=== PATIENT | female | born 2000 | race Caucasian/White ===

== ENCOUNTER 2022-04-03 12:28 | Outpatient (CLI) | payer MEDICAID, SELFPAY ==
[2022-04-03 19:01] LABS: Chlamydia DNA Amplified* NOT DETECTED (No Detected); GC DNA Amplified* NOT DETECTED (No Detected)
== END 2022-04-03 12:29 | disposition home or self-care (01) ==
PROVIDERS: PCP Physician Assistant Medical; Visit Provider Obstetrics & Gynecology
DX: Z86.19 Personal history of other infectious and parasitic diseases (principal)
CPT/HCPCS: 87491; 87591

== ENCOUNTER 2023-02-14 08:41 | Emergency (ER) | payer MEDICAID, SELFPAY ==
[2023-02-14 08:46] VITALS: BP 136/77; PULSE 100; RESP 16; TEMP 36.7; O2SAT 97; BMI 26.2
--- NOTE | 2023-02-14 09:01 | ED.GENADULT ---
HPI - General Adult General Time Seen by Provider: 09:02 Date Seen: 02/14/23 Chief complaint: Animal Bite Stated complaint: dog bite on the nose Time Seen by Provider: 02/14/23 08:49 Source: patient and RN notes reviewed Mode of arrival: ambulatory Limitations: no limitations History of Present Illness HPI narrative: 22-year-old female who comes in today with upper respiratory symptoms, dog bite. She says she has had off and on cold symptoms for several months, most recently started a couple days ago with nasal congestion, cough, and ?feeling fuzzy?. She also notes a dog bite on her nose from 3 days ago. Known animal, unknown vaccination status. She called the clinic and they told her to come to the emergency department for evaluation for rabies and tetanus shots. Patient is not sure if she is . Related Data Home Medications Medication Instructions Recorded Confirmed albuterol sulfate 90 mcg/actuation 2 inhalation PRN 04/03/22 04/03/22 aerosol inhaler citalopram 20 mg tablet 20 mg PO QDAY 04/03/22 02/14/23 meloxicam 15 mg tablet 15 mg PO DAILY 02/14/23 02/14/23 norgestimate-ethinyl estradiol 1 tab PO DAILY 02/14/23 02/14/23 0.18 mg/0.215mg/0.25mg-35 mcg(28)tablet (Tri-Sprintec (28)) Allergies Allergy/AdvReac Type Severity Reaction Status Date / Time No Known Allergies Allergy Unverified 04/03/22 11:30 [facility] Medical History (Updated 02/14/23 @ 09:10 by Ramírez Villalobos MD) PTSD (post-traumatic stress disorder) ?F43.10 - Post-traumatic stress disorder, unspecified (ICD-10) Asthma ?J45.909 - Unspecified asthma, uncomplicated (ICD-10) Moderate episode of recurrent major depressive disorder (05/30/16) ?F33.1 - Major depressive disorder, recurrent, moderate (ICD-10) Generalized anxiety disorder (05/30/16) ?F41.1 - Generalized anxiety disorder (ICD-10) Family History (Updated 04/03/22 @ 15:40 by Tg Solis MD) Paternal Grandmother Breast cancer Social History (Updated 04/03/22 @ 15:40 by Tg Solis MD) Narrative: She currently works at [employer]. She has a high school graduate. She does not exercise regularly. She vapes daily. She doesn't use tobacco. She does not drink alcohol or use recreational drugs. Smoking Status: Never smoker Do you use any of these nicotine containing products: None Second hand tobacco smoke exposure: No How often do you have a drink containing alcohol: never How often do you have six or more drinks on one occasion: Never AUDIT-C Alcohol total score: 0 Non-prescribed substance use: denies use service: No Exam Narrative: Exam Narrative: General: Well-developed and well-nourished, no acute distress Head: Atraumatic and normocephalic Eyes: Pupils are equal reactive, extraocular motions intact, conjunctiva clear ENT: 1-2 mm superficial abrasion on the nasal bridge with no surrounding erythema or tenderness, external ears are normal, posterior pharynx without erythema or exudate. Nares congested. Neck: No midline cervical tenderness, full spontaneous range of motion the neck, trachea midline, no adenopathy Heart: Regular rate and rhythm no murmurs or thrills Lungs: Clear to auscultation bilaterally without wheezes or crackles Abdomen: Soft, nontender, nondistended with active bowel sounds Musculoskeletal: No tenderness, deformity, or edema Neurologic: Awake, alert, and oriented x3, no gross focal neurologic deficits, cranial nerves intact as tested Psych: Mood and affect are appropriate Skin: No rashes Const: Vital Signs, click to edit/add: Vital Signs - 24 hr 02/14/23 08:46 Temperature 98.1 F Pulse Rate [Left P ulse Oximeter] 100 Respiratory Rate 16 Blood Pressure [Le ft Upper Arm] 136/77 Pulse Oximetry 97 Oxygen Delivery Me thod Room Air Course Course Hospital Course: Patient seen examined, prior records reviewed. Patient with recent upper respiratory symptoms, she is mildly tachycardic but afebrile, lungs are clear no respiratory distress. Denies dysuria. No headache or neck stiffness. COVID and influenza tests are ordered. Also small superficial abrasion on the bridge of the nose with no surrounding erythema or tenderness to suggest infection or cellulitis. Discussed wound care. Also discussed rabies, dog that bit her is the pet of a friend, likely vaccinated and is observable.. Will defer rabies for now but will update that shot. Patient is unsure she is , last period was a month ago, patient is on control but admits that she has missed a couple of doses. test is ordered. Reevaluation(s) Time of Reevaluation #1: 10:11 Reevaluation #1: Present test independently interpreted by me is negative, COVID influenza pending. Patient is stable for discharge. Vital Signs Vital signs: Initial Vital Signs Temperature 98.1 F 02/14/23 08:46 Temperature Source Temporal Artery Scan 02/14/23 08:46 Pulse Rate 100 02/14/23 08:46 Pulse Rhythm Regular 02/14/23 08:46 Pulse Strength 3+ Normal 02/14/23 08:46 Respiratory Rate 16 02/14/23 08:46 Blood Pressure 136/77 02/14/23 08:46 Blood Pressure Mean 96 02/14/23 08:46 Blood Pressure Position Sitting 02/14/23 08:46 Pulse Oximetry 97 02/14/23 08:46 Oxygen Delivery Method Room Air 02/14/23 08:46 Vital Signs Temperature 98.1 F 02/14/23 08:46 Pulse Rate 100 02/14/23 08:46 Respiratory Rate 16 02/14/23 08:46 Blood Pressure 136/77 02/14/23 08:46 Pulse Oximetry 97 02/14/23 08:46 Oxygen Delivery Method Room Air 02/14/23 08:46 Temperature 98.1 F 02/14/23 08:46 Pulse Rate 100 02/14/23 08:46 Respiratory Rate 16 02/14/23 08:46 Blood Pressure 136/77 02/14/23 08:46 Pulse Oximetry 97 02/14/23 08:46 Oxygen Delivery Method Room Air 02/14/23 08:46 Medical Decision Making Lab Data Labs: Lab Results 02/14/23 Range/Units 09:00 Urine HCG, Qual Negative (Negative) Discharge Plan Discharge Clinical Impression: Acute upper respiratory infection, Dog bite Patient Disposition: Home, Self-Care Condition: Stable Instructions: Animal Bite (ED), Upper Respiratory Infection (DC) Additional Instructions: Wash your wound daily with soap and water, Band-Aid as desired Activity Level: No Restrictions Discharge Diet: Regular Prescriptions: No Action albuterol sulfate 90 mcg/actuation HFA aerosol inhaler 2 inhalation PRN citalopram 20 mg tablet 20 mg PO QDAY meloxicam 15 mg tablet 15 mg PO DAILY norgestimate-ethinyl estradiol [Tri-Sprintec (28)] 0.18/0.215/0.25 mg-35 mcg (28) tablet 1 tab PO DAILY Follow Up/Referrals: Amna Rojas, PAElio [Primary Care Provider] - Stand Alone Forms: [employer] Info Instructions
[2023-02-14] MEDS: TETANUS/DIPHTH/PERTUSSIS 0.5 ML SYRINGE IM (09:21)
[2023-02-14 09:54] LABS: Ur HCG Qualitative* Negative (Negative)
[2023-02-14 10:15] LABS: PCR FLU A Negative PCR FLU A (Negative); PCR FLU B Negative PCR FLU B (Negative); PCR RSV Negative PCR RSV (Negative)
[2023-02-14 10:19] LABS: SARS PCR* Negative SARS-CoV-2 (Negative)
== END 2023-02-14 10:21 | disposition home or self-care (01) ==
PROVIDERS: Emergency Provider Family Medicine; PCP Physician Assistant Medical
DX: J06.9 Acute upper respiratory infection, unspecified (principal); S01.25XA Open bite of nose, initial encounter; W54.0XXA Bitten by dog, initial encounter
CPT/HCPCS: 81025; 87631; 90471; 90715; 99283; 99284

== ENCOUNTER 2023-06-05 13:45 | Outpatient (RCR) | payer OTHER, SELFPAY | END 2023-10-03 23:59 | disposition home or self-care (01) | PROVIDERS: PCP Physician Assistant Medical; Visit Provider Student in an Organized Health Care Education/Training Program | DX: S46.811D Strain of other muscles, fascia and tendons at shoulder and upper arm level, right arm, subsequent encounter (principal); S29.012A Strain of muscle and tendon of back wall of thorax, initial encounter; S46.911A Strain of unspecified muscle, fascia and tendon at shoulder and upper arm level, right arm, initial encounter; Z51.89 Encounter for other specified aftercare | CPT/HCPCS: 97110; 97140; 97162; 97530 ==

== ENCOUNTER 2023-12-23 11:03 | Emergency (ER) | payer MEDICAID, SELFPAY ==
[2023-12-23 11:10] VITALS: BP 120/70; PULSE 90; RESP 16; TEMP 36.8; O2SAT 99; BMI 25.6
--- NOTE | 2023-12-23 11:22 | ED.ANIMALBIT ---
HPI - Animal Bite General Chief Complaint: Animal Bite Stated Complaint: cat bite Time Seen by Provider: 12/23/23 11:09 History of Present Illness HPI narrative: This 23-year-old female comes in with an injury to her left hand as she was bit by her cat a few hours prior to arrival. She has puncture encarnacion in the thenar muscle of her left hand and a scratch on the forearm. The patient's vaccination status is up-to-date as are her cat's vaccinations up-to-date. Related Data Home Medications Medication Instructions Recorded Confirmed albuterol sulfate 90 mcg/actuation 2 inhalation PRN 04/03/22 04/03/22 aerosol inhaler Previous Rx's Medication Instructions Recorded amoxicillin 875 mg-potassium 1 tab PO BID #14 tabs 12/23/23 clavulanate 125 mg tablet Allergies Allergy/AdvReac Type Severity Reaction Status Date / Time No Known Allergies Allergy Unverified 04/03/22 11:30 Review of Systems Status of ROS: Reports: 10 or more systems reviewed and unremarkable except as noted in History and below Narrative: Constitutional: No fevers, no weight gain or loss. Eyes: No discharge. No vision changes. HENT: No congestion, no sore throat, no ear pain. Cardiovascular: No chest pain, no palpitations. Respiratory: No shortness of breath, no wheezes, no cough. Gastrointestinal: No abdominal pain, no vomiting, no diarrhea. Genitourinary: No dysuria, no hematuria. Musculoskeletal: Normal range of motion. Skin: No rashes, no pruritis. Neurological: No dizziness, weakness, sensory change, speech change. Endo/Heme/Allergies: No bruising or bleeding. No polydipsia. Pysch: no suicidality, no anxiety, no insomnia. All other systems reviewed and are negative. [facility] Medical History (Updated 12/23/23 @ 11:25 by Mehrdad Smiley MD) PTSD (post-traumatic stress disorder) ?F43.10 - Post-traumatic stress disorder, unspecified (ICD-10) Asthma ?J45.909 - Unspecified asthma, uncomplicated (ICD-10) Moderate episode of recurrent major depressive disorder (05/30/16) ?F33.1 - Major depressive disorder, recurrent, moderate (ICD-10) Generalized anxiety disorder (05/30/16) ?F41.1 - Generalized anxiety disorder (ICD-10) Family History (Updated 04/03/22 @ 15:40 by Tg Solis MD) Paternal Grandmother Breast cancer Social History (Updated 04/03/22 @ 15:40 by Tg Solis MD) Narrative: She currently works at [email or web address]. She has a high school graduate. She does not exercise regularly. She vapes daily. She doesn't use tobacco. She does not drink alcohol or use recreational drugs. Smoking Status: Never smoker Do you use any of these nicotine containing products: None Second hand tobacco smoke exposure: No How often do you have a drink containing alcohol: never How often do you have six or more drinks on one occasion: Never AUDIT-C Alcohol total score: 0 Non-prescribed substance use: denies use service: No Exam Narrative: Exam Narrative: Constitutional: Well-developed, well-nourished, no acute distress. HEENT: Normocephalic, atraumatic. Neck: Normal range of motion. Nontender. Supple. Heart: Intact distal pulses. Lungs: No chest discomfort. No wheezes, rhonchi, or rales. Abdomen: Nontender. Back: Normal range of motion. Extremities: Normal range of motion. Three puncture wounds in the thenar muscle of her left hand. A superficial scratch also on the forearm. Skin: Intact. No rash. Warm. No erythema or pallor. Neurologic: No altered sensation. No weakness. Alert and oriented. Psychiatric: No suicidality. No anxiety or depression. No insomnia. Nursing notes and vitals signs are reviewed. Const: Vital Signs, click to edit/add: Vital Signs - 24 hr 12/23/23 11:10 Temperature 98.3 F Pulse Rate [Pulse Oximeter] 90 Respiratory Rate 16 Blood Pressure [Ri ght Upper Arm] 120/70 Pulse Oximetry 99 Oxygen Delivery Me thod Room Air Course Vital Signs Vital signs: Initial Vital Signs Temperature 98.3 F 12/23/23 11:10 Temperature Source Temporal Artery Scan 12/23/23 11:10 Pulse Rate 90 12/23/23 11:10 Respiratory Rate 16 12/23/23 11:10 Blood Pressure 120/70 12/23/23 11:10 Blood Pressure Mean 86 12/23/23 11:10 Blood Pressure Position Supine 12/23/23 11:10 Pulse Oximetry 99 12/23/23 11:10 Oxygen Delivery Method Room Air 12/23/23 11:10 Vital Signs Temperature 98.3 F 12/23/23 11:10 Pulse Rate 90 12/23/23 11:10 Respiratory Rate 16 12/23/23 11:10 Blood Pressure 120/70 12/23/23 11:10 Pulse Oximetry 99 12/23/23 11:10 Oxygen Delivery Method Room Air 12/23/23 11:10 Temperature 98.3 F 12/23/23 11:10 Pulse Rate 90 12/23/23 11:10 Respiratory Rate 16 12/23/23 11:10 Blood Pressure 120/70 12/23/23 11:10 Pulse Oximetry 99 12/23/23 11:10 Oxygen Delivery Method Room Air 12/23/23 11:10 MDM - Animal Bite MDM Narrative Medical decision making narrative: This patient has a cat bite to her left hand. Given the high risk of infection the patient did receive a prescription for Augmentin. She also received a return to work note. I advised her to use glmo-pmp-[id number] medicines as needed and directed. The CT and the patient's vaccination status is up-to-date. The patient states that the CT appears well and is almost always inside and not roaming outside. Discharge Plan Discharge Clinical Impression: Cat bite Patient Disposition: Home, Self-Care Condition: Stable Additional Instructions: Take medication as prescribed. Use gaoh-jfk-[id number] medicines also as needed and directed. Follow up with MD or return if worsening. Prescriptions: New amoxicillin-pot clavulanate 875-125 mg tablet 1 tab PO BID Qty: 14 0RF No Action albuterol sulfate 90 mcg/actuation HFA aerosol inhaler 2 inhalation PRN Follow Up/Referrals: Amna Rojas PA-C [Primary Care Provider] - Stand Alone Forms: [employer] Info Instructions
--- OUTSIDE RECORDS SUMMARY | 2023-12-23 11:30 | XMS_ITS | Clinical Summary ---
Author Name Unknown Organization [facility] Address [place], [place] [address] Care Team Providers Care Inverform Machine Operator Name Role Phone Amna Rojas Primary Care Provider Allergies No known active allergies Medications Medication Sig Dispensed Refills Start Date End Date Status citalopram (CELEXA) 20 mg tabletIndications: Depression, major, single episode, moderate (HC) Take 1 Tablet (20 mg) by mouth every morning. 90 Tablet 3 01/17/2023 Active norgestimate-ethin yl estradioL (Tri-Sprintec) 0.18/0.215/0.25 mg-35 mcg (28) tabletIndications: Acne, unspecified acne type Take 1 Tablet by mouth once daily. 84 Tablet 3 01/17/2023 Active meloxicam 15 mg tabletIndications: Shoulder strain, right, initial encounter Take 1 Tablet (15 mg) by mouth once daily. 30 Tablet 02/02/2023 Active ibuprofen (ADVIL; MOTRIN) 200 mg tabletIndications: Periscapular pain Take 2 Tablets (400 mg) by mouth every 6 hours if needed for Pain. 90 Tablet 05/01/2023 Active acetaminophen (TYLENOL EXTRA STRGTH) 500 mg tabletIndications: Periscapular pain Take 1 Tablet (500 mg) by mouth every 6 hours. Max acetaminophen dose: 4000mg in 24 hrs. 60 Tablet 05/01/2023 Active albuterol HFA (PRO-AIR; VENTOLIN; PROVENTIL) 90 mcg/actuation inhalerIndications :Cough, unspecified type Inhale 1-2 Puffs by mouth every 4 hours if needed for Shortness Of Breath. 1 Each 07/23/2023 Active Active Problems Problem Noted Date Diagnosed Date Pap smear for cervical cancer screening 08/06/20 23 Overview: 07/2023 NIL Plan: Pap/HPV due 07/2026 Trapezius strain, right, initial encounter 02/09 Mild intermittent asthma without complication MDD (major depressive disord er), recurrent episode, moderate 05/30/2016 AYAN (generalized anxiety disorder) 05/30/2016 PTSD (post-traumatic stress disorder) Provisiona l 05/30/2016 Immunizations Name Administration Dates Next Due COVID-19 vaccine (Moderna 100mcg/0.5mL) PF, MDV 06/05/2021,05/08/2021 DTaP 10/30/2005, 3,2001,09/04,2001 HIB-HepB (Comvax) 09/16/2002,2001,07/30/20 01 Hepatitis A (Peds) 01/14/2010,01/04/2007 007 Human Papilloma Virus Vaccine 02/06/2014, 014,08/07/2013 02/05/2014 Inactivated Polio Vaccine 10/30/2005,,2001,07/05 Influenza, IIV3 (Age >=3 years) 08/07/2013 MMR 10/30/2005,05/27/2002 Meningococcal Vaccine (Menveo) 06/10/2018,2012 Pneumococcal conj 7-Valent ( Prevnar 7) 09/16/2002,05/27/2002,02/14/2002,11/02 Tdap 08/07/2013 Varicella Vaccine 01/04/2007,05/27/2002 Family History Medical History Relation Name Comments Psychiatric illness Mother depressi on Relation Name Status Comments Mother Alive Social History Tobacco Use Types Packs/Day Years Used Date Smoking Tobacco: Former Cigarettes Smokeless Tobacco: Never Tobacco Cessation:Counseling Given: Not Answered Alcohol Use Standard Drinks/Week Comments Yes 0 (1 standard drink = 0.6 oz pur e alcohol) PHQ-2 Answer Date Recorded PHQ-2 TOTAL SCORE 2 07/06/2021 Social Connections Answer Date Recorded Frequency of Communication with Friends and Fami ly 0 06/20/2023 Financial Resource Strain Answer Date R ecorded Difficulty of Paying Living Expenses 2 06/20/2023 Difficulty of Paying Living Expenses 1 06/20/2023 Food Insecurity Answer Date Recorded Worried About Running Out of Food in the Last Ye ar 2 06/20/2023 Transportation Needs Answer Date Record ed Lack of Transportation (Medical) 2 06/20/2023 Housing Stability Answer Date Recorded Unable to Pay for Housing in the Last Year 1 06/20/2023 Sex and Gender Information Value Date Recorded Sex Assigned at Not on file Gender Identity Not on file Sexual Orientation Not on file Obstetrics History Last Filed Vital Signs Vital Sign Reading Time Taken Comments Blood Pressure 104/70 07/23/2023 1:30 PM REMEDY DEVELOPER Pulse 96 07/23/2023 1:30 PM REMEDY DEVELOPER Temperature 36.7 ??C (98 ??F) 02/09/2023 4:21 PM CDT Respiratory Rate 18 02/09/2023 4:21 PM CDT Oxygen Saturation 98% 05/01/2023 12:57 PM CDT Inhaled Oxygen Concentration - - Weight 65.3 kg (144 lb) 07/23/2023 1:30 PM REMEDY DEVELOPER Height 161.3 cm (5' 3.5) 02/09/2023 4:21 PM CDT Body Mass Index 25.11 02/09/2023 4:21 PM CDT Plan of Treatment Upcoming Encounters Date Type Department Care Team (Late st Contact Info) Description 01/21/2024 10:50 AM CDT Office Visit [facility] [address] [place] [address] Amna Rojas PA [address] [place] [address] Health Maintenance Due Date Last Done Comments Depression screening for age 12+ 07/06/2022 07/06/2021, 01/05/2021, 01/05/2021, Additional history exists COVID-19 vaccine series ( season) 2023 06/05/2021, 05/08/2021 Tetanus booster 08/07/2023 08/07/2013 BMI (ht and wt on same day) for age 18+ 02/03/2024 02/02/2023, 01/17/2023, 03/13/2022, Additional history exists Influenza for age 9-49 05/04/2024 08/07/2013 Chlamydia for age 16-24 07/23/2024 07/23/20 23, 06/20/2023, 01/17/2023, Additional history exists Pap test for age 21-65 07/23/2026 07/23/2023 Pneumococcal series for age 6-64 Aged Out 09/16/2002, 05/27/2002, 02/14/2002, Additional history exists No longer eligible based on patient's age to complete this topic Tdap Completed 08/07/2013 HPV series for age 9-26 Completed 02/07/20 14, 10/09/2013, 08/07/2013 HIV for age 15-65 Completed 06/20/2023, , 09/16/2021 Hepatitis C screening for age 18-79 Completed 06/20/2023, 09/16/2021 Procedures Procedure Name Priority Date/Time Associated Diagnosis Comments GC CHLAMYDIA TRACH PROBE Routine 07/23/2023 1:52 PM REMEDY DEVELOPER Screen for STD (sexually transmitted disease) FURNITURE REFINISHER THIN PREP PAP SCREEN IMAGED Routine 07/23/2023 1:52 PM REMEDY DEVELOPER Screening for cervical cancer ANTI HIV 1/2 Routine 06/20/2023 10:05 AM CDT Screen for STD (sexually transmitted disease) ANTI HCV Routine 06/20/2023 10:05 AM CDT Screen for STD (sexually transmitted disease) from Last 3 Months or Most Recently Relevant to Health Maintenance Results * FURNITURE REFINISHER THIN PREP PAP SCREEN IMAGED (07/23/2023 1:52 PM REMEDY DEVELOPER) Case Report Gynecologic Cytology Report ? Case: [id number] ? Authorizing Provider: ??Amna Rojas PA Collected: ? 07/23/2023 1352 ? Ordering Location: ? [facility] ?? Received: ?07/23/2023 1431 ? Clinic ? First Screen: ?Ladan, Sabrina L ? Pathologist: ? Son Barrera Jr., ? MD ? Specimen: ?FURNITURE REFINISHER ThinPrep Vial Screening, Cervical ? 08/06/2023 3:12 PM REMEDY DEVELOPER [facility] INTERPRETATION/ RESULT NEGATIVE FOR INTRAEPITHELIAL LESION OR MALIGNANCY (NIL) (none) 08/06/2023 3:12 PM REMEDY DEVELOPER [facility] R NON-NEOPLASTIC FINDING(S) Reactive cellular changes associated with inflammation/repa ir 08/06/2023 3:12 PM REMEDY DEVELOPER [facility] SPECIMEN ADEQUACY Satisfactory for evaluation Endocervical component present 08/06/2023 3:12 PM REMEDY DEVELOPER [facility] Date of LMP 06-27-23 08/06/2023 3:12 PM REMEDY DEVELOPER [facility] Last Pap Date none 08/06/2023 3:12 PM REMEDY DEVELOPER [facility] Last Pap Result First Pap/Unknown 3:12 PM REMEDY DEVELOPER [facility] Abnormal Pap or Palo Bx in last 5 years No 08/06/2023 3:12 PM REMEDY DEVELOPER [facility] Menstrual Status Regular Periods 08/06/2023 3:12 PM REMEDY DEVELOPER [facility] Palo Bx Done Today No 08/06/2023 3:12 PM REMEDY DEVELOPER [facility] Additional Information None given 08/06/2023 3:12 PM REMEDY DEVELOPER [facility] Comment: Cytology is screened at [facility] - [address], [place] [address] and [facility] - [address], [place] [address] and [facility] - [address] [place] [address] Interpreted at [facility] - [address], [place] [address] Automated Review Successful 08/06/2023 3:12 PM REMEDY DEVELOPER [facility] Comment:Specimen processed s uccessfully by automated toll collector supervisor device, ThinPrep Imaging System, [employer] Note The pap test is a screening technique, not a diagnostic procedure. It is used primarily to screen for squamous cancers and precursor lesions. Published studies have shown that it is subject to both false negative and false positive results. The pap test should not be used as the sole means to diagnose or exclude pre-malignant and malignant lesions. 08/06/2023 3:12 PM REMEDY DEVELOPER [facility] ENTRAL LABORATORY Other (Cervical) Non-Blood / Unknown 07/23/2023 1:52 PM REMEDY DEVELOPER 07/23/2023 2:31 PM REMEDY DEVELOPER Amna JAMES PATHOLOGY/CYTOL OGY Performing Organization Address City/[facility] [address]/ZIP Co de Phone Number [facility] [address] [place] [address], [place] * GC CHLAMYDIA TRACH PROBE (07/23/2023 1:52 PM REMEDY DEVELOPER) CHLAMYDIA PROBE Negative 1:25 PM REMEDY DEVELOPER [facility] TRAL LABORATORY N GONORRHOEAE PROBE Negative 07/24/2023 1:25 PM REMEDY DEVELOPER [facility] Other VAGINAL SWAB / Unknown Non-Blood / Unknown 07/23/2023 1:52 PM REMEDY DEVELOPER 07/23/2023 2:31 PM REMEDY DEVELOPER Amna JAMES MICROBIOLOGY Performing Organization Address [facility] [address]/[facility] Co de Phone Number [facility] [address] [place] [address], [place] * ANTI HCV (06/20/2023 10:05 AM CDT) HEPATITIS C ANTIBODY Non-Reacti ve Non-React lupe 06/20/2023 4:50 PM CDT [facility] TR[facility] LAB[facility] Comment:Please note, per www .CDC.gov: If a patient is known to be at high risk of HCV infection, or is symptomatic, and the physician's suspicion of HCV infection is high, HCV RNA testing is often employed and is of diagnostic value, even after an initial negative anti-HCV test result. Blood BLOOD SPECIMEN / Unknown Venipuncture / Unknown 06/20/2023 10:05 AM CDT 06/20/2023 10:06 AM CDT Amna JAMES [facility]END [facility]S [facility] [address] [address], * ANTI HIV 1/2 (06/20/2023 10:05 AM CDT) HIV-1/HIV-2 SCREEN Non-Reacti ve Non-Reacti ve 06/20/2023 4:42 PM CDT [facility] Comment:HIV-1 p24 and HIV-1/ HIV-2 Ab Not Detected. Blood BLOOD SPECIMEN / Unknown Venipuncture / Unknown 06/20/2023 10:05 AM CDT 06/20/2023 10:06 AM CDT Amna JAMES SEND OUTS Performing Organization Address City/[facility] [address]/ZIP Co de Phone Number [facility] [address] [place] [address], from Last 3 Months or Most Recently Relevant to Health Maintenance Care Teams Inverform Machine Operator Relationship Specialty Start Date End Date Amna Rojas PA [address] [place] [address] PCP - General Physician Health Data Analyst 05/19/20
== END 2023-12-23 11:39 | disposition home or self-care (01) ==
LOC: ED 11:28
PROVIDERS: Emergency Provider Emergency Medicine Emergency Medical Services; PCP Physician Assistant Medical
DX: S61.432A Puncture wound without foreign body of left hand, initial encounter (principal); W55.01XA Bitten by cat, initial encounter
CPT/HCPCS: 99283; 99284

== ENCOUNTER 2023-12-25 07:45 | Emergency (ER) | payer MEDICAID, SELFPAY ==
[2023-12-25 07:52] VITALS: BP 107/64; PULSE 91; RESP 18; TEMP 36.6; O2SAT 98; BMI 25.6
--- NOTE | 2023-12-25 08:12 | ED_ITS ---
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 had a cat bite on Sunday to the left hand. has redness, swelling and pain that is not improving. is on augmentin . does need a not for work 23-year-old young woman presenting to the emergency department for re-evaluation following a cat bite 2 days ago. Initiated on Augmentin. She has had 3 doses of antibiotic at this point. 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 Has not had a fever. Swelling is markedly less in her left hand however pain remains particular with any manipulation of the thumb area. Was bit on the base of the left thumb. There is no light duty option at work. Related Data Home Medications Medication Instructions Recorded Confirmed albuterol sulfate 90 mcg/actuation 2 inhalation PRN 04/03/22 04/03/22 aerosol inhaler Previous Rx's Medication Instructions Recorded amoxicillin 875 mg-potassium 1 tab PO BID #14 tabs 12/23/23 clavulanate 125 mg tablet Allergies Allergy/AdvReac Type Severity Reaction Status Date / Time No Known Allergies Allergy Unverified 04/03/22 11:30 Review of Systems Status of ROS: Reports: 6 or more systems reviewed and unremarkable except as noted in History and below [facility] Medical History PTSD (post-traumatic stress disorder) ?F43.10 - Post-traumatic stress disorder, unspecified (ICD-10) Asthma ?J45.909 - Unspecified asthma, uncomplicated (ICD-10) Moderate episode of recurrent major depressive disorder (05/30/16) ?F33.1 - Major depressive disorder, recurrent, moderate (ICD-10) Generalized anxiety disorder (05/30/16) ?F41.1 - Generalized anxiety disorder (ICD-10) Family History Paternal Grandmother Breast cancer Social History Narrative: She currently works at [employer]. She has a high school graduate. She does not exercise regularly. She vapes daily. She doesn't use tobacco. She does not drink alcohol or use recreational drugs. Smoking Status: Never smoker Do you use any of these nicotine containing products: None Second hand tobacco smoke exposure: No How often do you have a drink containing alcohol: never How often do you have six or more drinks on one occasion: Never AUDIT-C Alcohol total score: 0 Non-prescribed substance use: denies use service: No Exam Narrative: Exam Narrative: Pleasant. NAD. Skin is warm and dry. There is mild swelling and mild erythema at the thenar eminence and dorsum of the 1st MCP on the left hand. These were/are bandaged. Does have good strength in the left hand but pain notable with manipulation of the thumb. Const: Vital Signs, click to edit/add: Vital Signs - 24 hr 12/25/23 07:52 Temperature 98 F Pulse Rate [Pulse Oximeter] 91 Respiratory Rate 18 Blood Pressure [Le ft Upper Arm] 107/64 Pulse Oximetry 98 Oxygen Delivery Me thod Room Air Documenting provider has reviewed patient's vital signs: yes Course Vital Signs Vital signs: Initial Vital Signs Temperature 98 F 12/25/23 07:52 Temperature Source Temporal Artery Scan 12/25/23 07:52 Pulse Rate 91 12/25/23 07:52 Pulse Rhythm Regular 12/25/23 07:52 Respiratory Rate 18 12/25/23 07:52 Blood Pressure 107/64 12/25/23 07:52 Blood Pressure Mean 78 12/25/23 07:52 Blood Pressure Position Supine 12/25/23 07:52 Pulse Oximetry 98 12/25/23 07:52 Oxygen Delivery Method Room Air 12/25/23 07:52 Vital Signs Temperature 98 F 12/25/23 07:52 Pulse Rate 91 12/25/23 07:52 Respiratory Rate 18 12/25/23 07:52 Blood Pressure 107/64 12/25/23 07:52 Pulse Oximetry 98 12/25/23 07:52 Oxygen Delivery Method Room Air 12/25/23 07:52 Temperature 98 F 12/25/23 07:52 Pulse Rate 91 12/25/23 07:52 Respiratory Rate 18 12/25/23 07:52 Blood Pressure 107/64 12/25/23 07:52 Pulse Oximetry 98 12/25/23 07:52 Oxygen Delivery Method Room Air 12/25/23 07:52 Medical Decision Making MDM Narrative Medical decision making narrative: I would assess to have mild cellulitic changes. Overall sounds to be improved. I would continue course of antibiotics at this point and add b.i.d. soaking. Have not seen antibiotic failure at this point and furthermore is still prophylaxis. Would rest left hand a little longer. Work note and see patient discharge plan further discussion Medical Records Medical records reviewed: Yes I reviewed the patient's medical records Discharge Plan Discharge Clinical Impression: Hand pain, left, Cat bite Patient Disposition: Home w/ Parent or Adult Condition: Stable Additional Instructions: Please soak your hand in warm Epsom salt water or warm soapy water a couple of times daily over the next few days. Would continue with antibiotic ointment o nadine this time as well with dressing changes. Rest your hand yet today and tomorrow. Return for spreading erythema after tomorrow, purulent drainage, marked increase in pain or swelling. Prescriptions: No Action albuterol sulfate 90 mcg/actuation HFA aerosol inhaler 2 inhalation PRN amoxicillin-pot clavulanate 875-125 mg tablet 1 tab PO BID Qty: 14 0RF Follow Up/Referrals: Amna Rojas PA-C [Primary Care Provider] - Stand Alone Forms: Hubblr[employer] Info Instructions
--- OUTSIDE RECORDS SUMMARY | 2023-12-25 08:37 | XMS_ITS | Clinical Summary ---
Author Name Unknown Organization [facility] Address [place], [place] [address] Care Team Providers Care Banquet Server On Call Name Role Phone Amna Rojas Primary Care [...] Comments Blood Pressure 104/70 07/23/2023 1:30 PM COMMERCIAL LOAN ANALYST Pulse 96 07/23/2023 1:30 PM COMMERCIAL LOAN ANALYST Temperature 36.7 ??C (98 ??F) 02/09/2023 4:21 PM CDT Respiratory Rate 18 02/09/2023 4:21 PM CDT Oxygen Saturation 98% 05/01/2023 12:57 PM CDT Inhaled Oxygen Concentration - - Weight 65.3 kg (144 lb) 07/23/2023 1:30 PM COMMERCIAL LOAN ANALYST Height 161.3 cm (5' 3.5) 02/09/2023 4:21 PM CDT Body Mass Index 25.11 02/09/2023 4:21 PM CDT Plan of Treatment Upcoming Encounters Date Type Department Care Team (Late st Contact Info) Description 01/21/2024 10:50 AM CDT Office Visit [facility] [address] [place] [address] Amna Rojas PA [address] [place] [address] Health Maintenance Due Date Last Done Comments [...] CHLAMYDIA TRACH PROBE Routine 07/23/2023 1:52 PM COMMERCIAL LOAN ANALYST Screen for STD (sexually transmitted disease) EMBALMER/FUNERAL DIRECTOR THIN PREP PAP SCREEN IMAGED Routine 07/23/2023 1:52 PM COMMERCIAL LOAN ANALYST Screening for cervical cancer ANTI HIV 1/2 Routine 06/20/2023 10:05 AM CDT Screen for STD (sexually transmitted disease) ANTI HCV Routine 06/20/2023 10:05 AM CDT Screen for STD (sexually transmitted disease) from Last 3 Months or Most Recently Relevant to Health Maintenance Results * EMBALMER/FUNERAL DIRECTOR THIN PREP PAP SCREEN IMAGED (07/23/2023 1:52 PM COMMERCIAL LOAN ANALYST) Case Report Gynecologic Cytology Report ? Case: [id number] ? Authorizing Provider: ??Amna Rojas PA Collected: ? 07/23/2023 1352 ? Ordering Location: ? [facility] ?? Received: ?07/23/2023 1431 ? Clinic ? First Screen: ?Ladan, Sabrina L ? Pathologist: ? Son Barrera Jr., ? MD ? Specimen: ?EMBALMER/FUNERAL DIRECTOR ThinPrep Vial Screening, Cervical ? 08/06/2023 3:12 PM COMMERCIAL LOAN ANALYST [facility] INTERPRETATION/ RESULT NEGATIVE FOR INTRAEPITHELIAL LESION OR MALIGNANCY (NIL) (none) 08/06/2023 3:12 PM COMMERCIAL LOAN ANALYST [facility] LAB[facility] R NON-NEOPLASTIC FINDING(S) Reactive cellular changes associated with inflammation/repa ir 08/06/2023 3:12 PM COMMERCIAL LOAN ANALYST [facility] SPECIMEN ADEQUACY Satisfactory for evaluation Endocervical component present 08/06/2023 3:12 PM COMMERCIAL LOAN ANALYST [facility] Date of LMP 06-27-23 08/06/2023 3:12 PM COMMERCIAL LOAN ANALYST [facility] Last Pap Date none 08/06/2023 3:12 PM COMMERCIAL LOAN ANALYST [facility] Last Pap Result First Pap/Unknown 3:12 PM COMMERCIAL LOAN ANALYST [facility] Abnormal Pap or [place] Bx in last 5 years No 08/06/2023 3:12 PM COMMERCIAL LOAN ANALYST [facility] Menstrual Status Regular Periods 08/06/2023 3:12 PM COMMERCIAL LOAN ANALYST [facility] [place] Bx Done Today No 08/06/2023 3:12 PM COMMERCIAL LOAN ANALYST [facility] Additional Information None given 08/06/2023 3:12 PM COMMERCIAL LOAN ANALYST [facility] Comment: Cytology is screened at [facility] - [address], [place] [address] and [facility] - [address], [place] [address] and [facility] - [address] [place] [address] Interpreted at [facility] - [address], [place] [address] Automated Review Successful 08/06/2023 3:12 PM COMMERCIAL LOAN ANALYST [facility] Comment:Specimen processed s uccessfully by automated newspaper or periodical editor device, ThinPrep Imaging System, [employer] Note The pap test is a screening technique, not a diagnostic procedure. It is used primarily to screen for squamous cancers and precursor lesions. Published studies have shown that it is subject to both false negative and false positive results. The pap test should not be used as the sole means to diagnose or exclude pre-malignant and malignant lesions. 08/06/2023 3:12 PM COMMERCIAL LOAN ANALYST [facility]- ENTRAL LABORATORY Other (Cervical) Non-Blood / Unknown 07/23/2023 1:52 PM COMMERCIAL LOAN ANALYST 07/23/2023 2:31 PM COMMERCIAL LOAN ANALYST Amna JAMES PATHOLOGY/CYTOL OGY Performing Organization Address City/[facility]/ZIP Co de Phone Number [facility] [address] [place] [address], [place] * GC CHLAMYDIA TRACH PROBE (07/23/2023 1:52 PM COMMERCIAL LOAN ANALYST) CHLAMYDIA PROBE Negative 1:25 PM COMMERCIAL LOAN ANALYST [facility] TRAL LAB[facility]ATORY N GONORRHOEAE PROBE Negative 07/24/2023 1:25 PM COMMERCIAL LOAN ANALYST [facility] Other VAGINAL SWAB / Unknown Non-Blood / Unknown 07/23/2023 1:52 PM COMMERCIAL LOAN ANALYST 07/23/2023 2:31 PM COMMERCIAL LOAN ANALYST Amna JAEMS MICROBIOLOGY Performing Organization Address [facility] Co de Phone Number [facility] [address] [place] [address], [place] * ANTI HCV (06/20/2023 10:05 AM CDT) HEPATITIS C ANTIBODY Non-Reacti ve Non-React lupe 06/20/2023 4:50 PM CDT [facility] Comment:Please note, per www [...] 10:06 AM CDT Amna JAMES SEND OUTS [facility] [address] [address], * ANTI HIV 1/2 (06/20/2023 10:05 AM CDT) HIV-1/HIV-2 SCREEN Non-Reacti ve Non-Reacti ve 06/20/2023 4:42 PM CDT [facility] Comment:HIV-1 p24 and HIV-1/ HIV-2 Ab Not Detected. Blood BLOOD SPECIMEN / Unknown Venipuncture / Unknown 06/20/2023 10:05 AM CDT 06/20/2023 10:06 AM CDT Amna JAMES SEND OUTS Performing Organization Address City/[facility]/ZIP Co de Phone Number [facility] [address] [place] [address], from Last 3 Months or Most Recently Relevant to Health Maintenance Care Teams Banquet Server On Call Relationship Specialty Start Date End Date Amna Rojas PA [address] [place] [address] PCP - General Physician Botany Professor 05/19/20
== END 2023-12-25 08:45 | disposition home or self-care (01) ==
PROVIDERS: Emergency Provider Family Medicine; PCP Physician Assistant Medical
DX: S60.572A Other superficial bite of hand of left hand, initial encounter (principal); W55.01XA Bitten by cat, initial encounter
CPT/HCPCS: 99283; 99284

== ENCOUNTER 2024-10-20 19:18 | Emergency (ER) | payer MEDICAID, SELFPAY ==
--- OUTSIDE RECORDS SUMMARY | 2024-10-20 19:20 | XMS_ITS | Clinical Summary ---
Author Organization [facility] Address [place], [place] [address] Care Team Providers Care Palliative Care Nurse Name Role Phone Amna Rojas Primary Care Provider Allergies No known active allergies Medications albuterol HFA (PRO-AIR; VENTOLIN; PROVENTIL) 90 mcg/actuation inhalerIndications :Cough, unspecified type Inhale 1-2 Puffs by mouth every 4 hours if needed for Shortness Of Breath. 1 Each 4 Active ondansetron (ZOFRAN ODT) 4 mg disintegrating tabletIndications: Nausea and vomiting, unspecified vomiting type Place 1 Tablet (4 mg) on the tongue every 8 hours if needed for Nausea/Vomiti ng. 30 Tablet 4 Active clotrimazole (LOTRIMIN) 1 % creamIndications:V ulvar candidiasis Apply topically to affected area(s) two times daily. Use for 5-7 days. 45 g 4 Active Active Problems Problem Noted Date Diagnosed Date Pap smear for cervical cancer screening 08/06/20 23 Overview (08/06/2023): 07/2023 NIL Plan: Pap/HPV due 07/2026 Trapezius strain, right, initial encounter 02/09 Mild intermittent asthma without complication MDD (major depressive disord er), recurrent episode, moderate 05/30/2016 AYAN (generalized anxiety disorder) 05/30/2016 PTSD (post-traumatic stress disorder) Provisiona l 05/30/2016 Encounters Date Type Department Care Team Description 09/05/2024 2:40 PM COMMERCIAL REAL ESTATE LENDER Office Visit [facility] [address] [place] [address] Dottie Lizarraga MD Establish Care; Cyst (Noticed about 1-2 years ago. Painful at times, puss discharge. ) 09/05/2024 Travel from Last 3 Months Immunizations Name Administration Dates Next Due COVID-19 vaccine (Moderna 100mcg/0.5mL) PF MDV 06/05/2021,05/08/2021 DTaP 10/30/2005, 3,2001,09/04,2001 HIB-HepB (Comvax) 09/16/2002,2001,07/30/20 01 Hepatitis A (Peds) 01/14/2010,01/04/2007 007 Human Papilloma Virus Vaccine 02/06/2014, 014,08/07/2013 02/05/2014 Inactivated Polio Vaccine 10/30/2005,,2001,07/05 Influenza, IIV3 (Age >=3 years) 08/07/2013 MENINGOCOCCAL VACCINE 2 VIAL 2MO-55YO (MENVEO) 06/10/2018,08/07/2013 MMR 10/30/2005,05/27/2002 Pneumococcal conj 7-Valent ( Prevnar 7) 09/16/2002,05/27/2002,02/14/2002,11/02 Tdap 08/07/2013 Varicella Vaccine 01/04/2007,05/27/2002 Family History Medical History Relation Name Comments Good Health Brother Unknown Father Psychiatric illness Mother depressi on Relation Name Status Comments Brother Father Mother Alive Social History Tobacco Use Types Packs/Day Years Used Date Smoking Tobacco: Former Cigarettes Smokeless Tobacco: Never Tobacco Cessation:Counseling Given: Yes Alcohol Use Standard Drinks/Week Comments Yes 0 (1 standard drink = 0.6 oz pur e alcohol) PHQ-2 Answer Date Recorded PHQ-2 TOTAL SCORE 0 09/05/2024 Social Connections Answer Date Recorded Do you often feel lonely or isolated from those around you? 0 09/05/2024 Financial Resource Strain Answer Date R ecorded Difficulty of Paying Living Expenses 3 09/05/2024 Difficulty of Paying Living Expenses Not on file 09/05/2024 Food Insecurity Answer Date Recorded Do you worry your food will run out before you are able to buy more? 1 09/05/2024 Transportation Needs Answer Date Record ed Does lack of transportation keep you from medica l appointments? 1 09/05/2024 Does lack of transportation keep you from work, meetings or getting things that you need? 1 09/05/2024 Housing Stability Answer Date Recorded What is your housing situation today? 1 09/05/2024 Utilities Answer Date Recorded Do you have trouble paying f or utilities (for example, heat, electricity, water, phone)? 1 09/05/2024 Comments No Sex and Gender Information Value Date Recorded Sex Assigned at Female 09/05/2024 1:58 AM COMMERCIAL REAL ESTATE LENDER Legal Sex Female 5:22 AM COMMERCIAL REAL ESTATE LENDER Gender Identity Female 09/05/2024 1:58 AM COMMERCIAL REAL ESTATE LENDER Sexual Orientation Not on file Obstetrics History Last Filed Vital Signs Vital Sign Reading Time Taken Comments Blood Pressure 108/76 09/05/2024 2:55 PM COMMERCIAL REAL ESTATE LENDER Pulse 83 09/05/2024 2:55 PM COMMERCIAL REAL ESTATE LENDER Temperature 37.1 C (98.7 F) 05/28/2024 10:23 AM CDT Respiratory Rate 18 02/09/2023 4:21 PM CDT Oxygen Saturation 99% 09/05/2024 2:55 PM COMMERCIAL REAL ESTATE LENDER Inhaled Oxygen Concentration - - Weight 66 kg (145 lb 8 oz) 01/21/2024 10:52 AM C DT Height 161.3 cm (5' 3.5) 01/21/2024 10:52 AM CD T Body Mass Index 25.37 01/21/2024 10:52 AM CDT Plan of Treatment Health Maintenance Due Date Last Done Comments Tetanus booster 08/07/2023 08/07/2013 COVID-19 vaccine series ( season) 2024 06/05/2021, 05/08/2021 Influenza for age 9-49 05/04/2024 08/07/2013 BMI (ht and wt on same day) for age 18+ 01/20/2025 01/21/2024, 02/02/2023, 01/17/2023, Additional history exists Chlamydia for age 16-24 06/06/2025 06/06/20, 03/21/2024, 01/21/2024, Additional history exists Depression screening for age 12+ 09/05/2025 09/05/2024, 07/06/2021, 01/05/2021, Additional history exists Pap test for age 21-65 07/23/2026 07/23/2023 Pneumococcal series for age 6-49 Aged Out 09/16/2002, 05/27/2002, 02/14/2002, Additional history exists No longer eligible based on patient's age to complete this topic Tdap Completed 08/07/2013 HPV series for age 9-26 Completed 02/07/20, 10/09/2013, 08/07/2013 HIV for age 15-65 Completed 06/20/2023, , 09/16/2021 Hepatitis C screening for age 18-79 Completed 06/20/2023, 09/16/2021 Procedures Procedure Name Priority Date/Time Associated Diagnosis Comments URINE POCT Routine 09/05/2024 4:12 PM COMMERCIAL REAL ESTATE LENDER RLQ abdominal pain CHLAMYDIA/NEISSERIA GONORRHOEAE RNA, TMA, UROGENITAL ([facility]) Routine 06/06/2024 3:00 PM CDT Vaginal discharge EQUIPMENT ASSOCIATE THIN PREP PAP SCREEN IMAGED Routine 07/23/2023 1:52 PM COMMERCIAL REAL ESTATE LENDER Screening for cervical cancer ANTI HIV 1/2 Routine 06/20/2023 10:05 AM CDT Screen for STD (sexually transmitted disease) ANTI HCV Routine 06/20/2023 10:05 AM CDT Screen for STD (sexually transmitted disease) from Last 3 Months or Most Recently Relevant to Health Maintenance Results * POCT Urine (09/05/2024 4:12 PM COMMERCIAL REAL ESTATE LENDER) POC HCG URINE NEGATIVE NEGATIVE [facility] Urine URINE SPECIMEN / Unknown 09/05/2024 4:12 PM COMMERCIAL REAL ESTATE LENDER 09/05/2024 4:12 PM COMMERCIAL REAL ESTATE LENDER Dottie Lizarraga MD URINE Fi nal Result [facility] [address] [place] [address], [place] [phone] [facility] [address] [place] [address] * CHLAMYDIA/NEISSERIA GONORRHOEAE RNA, TMA, UROGENITAL (QUEST) (06/06/2024 3:00 PM CDT) CHLAMYDIA TRACHOMATIS RNA, TMA, UROGENITAL NOT DETECTED NOT DETECTED [facility] NEISSERIA GONORRHOEAE RNA, TMA, UROGENITAL NOT DETECTED NOT DETECTED [facility] Comment: The analytical performance characteristics of this assay, when used to test SurePath(TM) specimens have been determined by [facility]. The modifications have not been cleared or approved by the FDA. This assay has been validated pursuant to the CLIA regulations and is used for clinical purposes. For additional information, please refer to https://education.[employer]/faq/TPH382 (This link is being provided for information/ educational purposes only.) Other VAGINAL SWAB / Unknown 06/06/2024 3:00 PM CDT 06/06/2024 3:01 PM CDT Dottie Lizarraga MD SEND OUTS Fi nal Result [facility] [place] [address] [place] [address], [facility] [address] [place] [address] * EQUIPMENT ASSOCIATE THIN PREP PAP SCREEN IMAGED (07/23/2023 1:52 PM COMMERCIAL REAL ESTATE LENDER) Case Report Gynecologic Cytology Report Case: [id number] Authorizing Provider: Amna Rojas PA Collected: 07/23/2023 1352 Ordering Location: [facility] Received: 07/23/2023 1431 Clinic First Screen: Sabrina Pickering Pathologist: Son Barrera Jr., MD Specimen: EQUIPMENT ASSOCIATE ThinPrep Vial Screening, Cervical 08/06/2023 3:12 PM COMMERCIAL REAL ESTATE LENDER [facility]- ENTRAL LABORATORY INTERPRETATION/ RESULT NEGATIVE FOR INTRAEPITHELIAL LESION OR MALIGNANCY (NIL) (none) 08/06/2023 3:12 PM COMMERCIAL REAL ESTATE LENDER [facility] EN[facility]AL LAB[facility] R NON-NEOPLASTIC FINDING(S) Reactive cellular changes associated with inflammation/repa ir 08/06/2023 3:12 PM COMMERCIAL REAL ESTATE LENDER [facility] SPECIMEN ADEQUACY Satisfactory for evaluation Endocervical component present 08/06/2023 3:12 PM COMMERCIAL REAL ESTATE LENDER [facility] Date of LMP 06-27-23 08/06/2023 3:12 PM COMMERCIAL REAL ESTATE LENDER [facility] Last Pap Date none 08/06/2023 3:12 PM COMMERCIAL REAL ESTATE LENDER [facility] Last Pap Result First Pap/Unknown 3:12 PM COMMERCIAL REAL ESTATE LENDER [facility] Abnormal Pap or [place] Bx in last 5 years No 08/06/2023 3:12 PM COMMERCIAL REAL ESTATE LENDER [facility] Menstrual Status Regular Periods 08/06/2023 3:12 PM COMMERCIAL REAL ESTATE LENDER [facility] [place] Bx Done Today No 08/06/2023 3:12 PM COMMERCIAL REAL ESTATE LENDER [facility] Additional Information None given 08/06/2023 3:12 PM COMMERCIAL REAL ESTATE LENDER [facility] Comment: Cytology is screened at [facility] - [address], [place] [address] and [facility] - [address], [place] [address] and [facility] - [address] [place] [address] Interpreted at [facility] - [address], [place] [address] Automated Review Successful 08/06/2023 3:12 PM COMMERCIAL REAL ESTATE LENDER [facility] ENTRAL LABORATORY Comment:Specimen processed s uccessfully by automated greenhouse laborer device, ThinPrep Imaging System, [employer] Note The pap test is a [...] and malignant lesions. 08/06/2023 3:12 PM COMMERCIAL REAL ESTATE LENDER [facility] ENTRAL LABORATORY Other (Cervical) Non-Blood / Unknown 07/23/2023 1:52 PM COMMERCIAL REAL ESTATE LENDER 07/23/2023 2:31 PM COMMERCIAL REAL ESTATE LENDER Amna JAMES PATHOLOGY/CYTOLOGY Maggie l Result Performing Organization Address City/[facility] Co de Phone Number [facility] [address] [place] [address], [place] * ANTI HCV (06/20/2023 10:05 AM CDT) HEPATITIS C ANTIBODY Non-Reacti ve Non-React lupe 06/20/2023 4:50 PM CDT [facility] Comment:Please note, per www .CDC.gov: [...] 10:06 AM CDT Amna JAMES SEND OUTS Final R esult Performing Organization Address City/[facility]/ZIP Co de Phone Number [facility] [address] [place] [address], [place] * ANTI HIV 1/2 (06/20/2023 10:05 AM CDT) HIV-1/HIV-2 SCREEN Non-Reacti ve Non-Reacti ve 06/20/2023 4:42 PM CDT [facility] Comment:HIV-1 p24 and HIV-1/ HIV-2 Ab Not Detected. Blood BLOOD SPECIMEN / Unknown Venipuncture / Unknown 06/20/2023 10:05 AM CDT 06/20/2023 10:06 AM CDT us Amna JAMES SEND OUTS Final R esult [facility] [address] [place] [address], [place] from Last 3 Months or Most Recently Relevant to Health Maintenance Insurance MEDICAID MEDICAID [facility] Care Teams Palliative Care Nurse Relationship Specialty Start Date End Date Am[place] [address] PCP - General Physician Ammunition Storekeeper 05/19/20
[2024-10-20 19:21] VITALS: BP 108/72; PULSE 96; RESP 16; TEMP 36.6; O2SAT 100; BMI 26.0
--- NOTE | 2024-10-20 20:04 | ED_ITS ---
HPI - General Adult General Time Seen by Provider: 20:04 Date Seen: 10/20/24 Chief complaint: Cough Stated complaint: Dizzy, Fever over weekend Time Seen by Provider: 10/20/24 19:51 Source: patient and RN notes reviewed Mode of arrival: ambulatory Limitations: no limitations History of Present Illness HPI narrative: This 24-year-old female is coming in with concern of lightheadedness and dizziness, feeling short of breath earlier today. Since Sunday she has felt dizzy and lightheaded, she has had some nasal congestion. No sore throat. She has had some nasal congestion. She has had some coughing. She awoke this morning and had some left-sided chest pain, felt short of breath. She used her albuterol inhaler, does think it helped. She does not have those symptoms now. She has had some nausea with this without abdominal pain vomiting or diarrhea. She has not been sexually active since August and has had normal reported cycles and negative test in clinic. She has had no current intercourse to cause any . She had fevers Sunday and Sunday. She has had some generalized headache. She felt shaky. She last used her albuterol inhaler maybe 1-2 months ago. She does have underlying asthma. Her boyfriend was sick but maybe a week or 2 ago. She used Zicam and DayQuil about 1 week ago, has not used anything outside of the albuterol inhaler this morning for her current symptoms. Related Data Home Medications ?Medication ?Instructions ?Recorded ?Confirmed albuterol sulfate 90 mcg/actuation 1 puff inhalation PRN 04/03/22 04/03/22 aerosol inhaler Allergies Allergy/AdvReac Type Severity Reaction Status Date / Time No Known Allergies Allergy Unverified 04/03/22 11:30 Review of Systems Status of ROS: Reports: 6 or more systems reviewed and unremarkable except as noted in History and below [facility] Medical History PTSD (post-traumatic stress disorder) ?F43.10 - Post-traumatic stress disorder, unspecified (ICD-10) Asthma ?J45.909 - Unspecified asthma, uncomplicated (ICD-10) Moderate episode of recurrent major depressive disorder (05/30/16) ?F33.1 - Major depressive disorder, recurrent, moderate (ICD-10) Generalized anxiety disorder (05/30/16) ?F41.1 - Generalized anxiety disorder (ICD-10) Family History Paternal Grandmother Breast cancer Social History Narrative: She currently works at [employer]. She has a high school graduate. She does not exercise regularly. She vapes daily. She doesn't use tobacco. She does not drink alcohol or use recreational drugs. Smoking Status: Never smoker Do you use any of these nicotine containing products: None Second hand tobacco smoke exposure: No How often do you have a drink containing alcohol: never How often do you have six or more drinks on one occasion: Never AUDIT-C Alcohol total score: 0 Non-prescribed substance use: denies use service: No Exam Const: Vital Signs, click to edit/add: Vital Signs - 24 hr 10/20/24 19:21 Temperature 97.8 F Pulse Rate [Pulse Oximeter] 96 Respiratory Rate 16 Blood Pressure [Ri ght Upper Arm] 108/72 Pulse Oximetry 100 Oxygen Delivery Me thod Room Air This 24-year-old female is alert, interactive, no apparent distress. She does smell of cigarette smoke. Pupils equal reactive, sclerae clear, extraocular muscles intact. Symmetrical facial function. Oropharynx with normal mucosa, no exudates erythema. TMs canals are normal. Neck is supple, no adenopathy, no thyromegaly masses or nodules. Lungs are clear, no wheezing crackles, good air entry, no tachypnea, no accessory muscle use. CV regular rate and rhythm, no murmur. Documenting provider has reviewed patient's vital signs: yes Course Course ED Course: Nursing staff collected triple viral swab on arrival. Will await that. Discussed that this really likely represents a viral etiology. There can be myositis, complications of asthma. She would like to proceed with blood work, EKG and chest x-ray as we discussed. Reevaluation(s) Time of Reevaluation #1: 21:17 Reevaluation #1: Have reviewed with [facility] that her labs, chest x-ray and EKG are all very reassuring. There is no concerning pathology in her workup here. We discussed that this is very likely is just some symptoms stemming from viral upper respiratory infection. She will continue to monitor, seek re-evaluation if she has further concerns or feels she is worsening. Plan to discharge to home at this time. Vital Signs Vital signs: Initial Vital Signs Temperature 97.8 F 10/20/24 19:21 Temperature Source Temporal Artery Scan 10/20/24 19:21 Pulse Rate 96 10/20/24 19:21 Respiratory Rate 16 10/20/24 19:21 Blood Pressure 108/72 10/20/24 19:21 Blood Pressure Mean 84 10/20/24 19:21 Blood Pressure Position Sitting 10/20/24 19:21 Pulse Oximetry 100 10/20/24 19:21 Oxygen Delivery Method Room Air 10/20/24 19:21 Vital Signs Temperature 97.8 F 10/20/24 19:21 Pulse Rate 96 10/20/24 19:21 Respiratory Rate 16 10/20/24 19:21 Blood Pressure 108/72 10/20/24 19:21 Pulse Oximetry 100 10/20/24 19:21 Oxygen Delivery Method Room Air 10/20/24 19:21 Temperature 97.8 F 10/20/24 19:21 Pulse Rate 96 10/20/24 19:21 Respiratory Rate 16 10/20/24 19:21 Blood Pressure 108/72 10/20/24 19:21 Pulse Oximetry 100 10/20/24 19:21 Oxygen Delivery Method Room Air 10/20/24 19:21 Medical Decision Making Lab Data Lab results reviewed: Yes I reviewed the patient's lab results Lab results narrative: Point of care troponin was 0.00. Labs: Lab Results 10/20/24 10/20/24 Range/Units 20:20 Unknown WBC 9.00 (4.50-11.00) K/uL RBC 4.17 (4.00-5.20) m/uL Hgb 13.0 (12.0-16.0) gm/dL Hct 38.6 (33.0-51.0) % MCV 93 (80-100) fL MCH 31 (26-34) pg MCHC 34 (32-36) gm/dL RDW Coeff of Laisha 11.7 (11.5-15.5) % Plt Count 278 (140-440) K/uL Neut % (Auto) 64.5 (42.0-72.0) % Lymph % (Auto) 24.1 (20-44) % [place]ajo % (Auto) 7.0 (0.0-11.0) % Eos % (Auto) 3.8 (0.0-7.0) % Baso % (Auto) 0.3 (0.0-3.0) % Neut # (Auto) 5.80 (1.7-7.0) K/uL Lymph # (Auto) 2.17 (0.90-2.90) K/uL [place]ajo # (Auto) 0.60 (0.00-0.90) K/UL Eos # (Auto) 0.34 (0.00-0.50) K/uL Baso # (Auto) 0.03 (0.00-0.30) K/uL Abs Immat Gran (auto) 0.03 (0.00-0.30) K/uL Imm/Tot Granulo (auto) 0.3 % Sodium 137 (135-149) mmol/L Potassium 4.1 (3.6-5.1) mmol/L Chloride 102 (96-114) mmol/L Carbon Dioxide 23 (20-32) mmol/L Anion Gap 12 (7-15) mEq/L BUN 12 (5-24) mg/dL Creatinine 0.6 (0.5-1.5) mg/dL Estimated Creat Clear 115.33 Estimated GFR 129 ml/min Glucose 90 (60-115) mg/dL Calcium 9.3 (8.4-10.6) mg/dL C-Reactive Protein < 0.5 L (0.5-1.0) mg/dL SARS-CoV-2 (PCR) Negative SARS-CoV-2 (Negative) Influenza Type A (PCR) Negative PCR FLU A (Negative) Influenza Type B (PCR) Negative PCR FLU B (Negative) RSV (PCR) Negative PCR RSV (Negative) Imaging Data Chest x-ray: Attestation: I have reviewed the pertinent imaging results. My impression: Portable chest x-ray was visualized and I do not perceive any acute cardiopulmonary pathology. Radiologist's impression: Patient: COCO RIZZO Facility:?[facility] Patient ID:?[id number] Site Patient ID:?[id number]. Site :?[id number] Study:?XRay-Chest 1V PORTABLE-10/20/2024 8:27:40 PM Ordering Physician:Elisabeth Posey Final Report: INDICATION: Cough, shortness of breath earlier COMPARISON: None. TECHNIQUE: Single frontal radiographic view(s) of the chest. FINDINGS: No substantial pleural effusion. No definite focal pulmonary consolidation. Normal heart size. No acute osseous findings. IMPRESSION: No acute thoracic findings. Dictated by Migel Burger MD @ 10/20/2024 8:30:07 PM (Electronic Signature) ECG Data Attestation: I personally reviewed and interpreted this ECG as follows: (Normal sinus rhythm with sinus arrhythmia, 79 beats per minute. No acute ischemic change, no pericarditis, no infarct noted.) Prior ECG tracings: not available for review Discharge Plan Discharge Clinical Impression: Acute viral syndrome Patient Disposition: Home, Self-Care Condition: Stable Instructions: Viral Syndrome (ED) Additional Instructions: Rest, drink plenty of fluids to stay hydrated. Hopefully you you will feel better within the next week. If you have any concerns for worsening, develops new symptoms that are concerning to you, have further concerns regarding this illness, please seek re-evaluation. Activity Level: Activity as Tolerated Discharge Diet: Regular Prescriptions: No Action albuterol sulfate 90 mcg/actuation HFA aerosol inhaler 1 puff inhalation PRN Follow Up/Referrals: Amna Rojas PA-C [Primary Care Provider] - Stand Alone Forms: Maimai Info Instructions
[2024-10-20 20:09] LABS: PCR FLU A Negative PCR FLU A (Negative); PCR FLU B Negative PCR FLU B (Negative); PCR RSV Negative PCR RSV (Negative); SARS PCR* Negative SARS-CoV-2 (Negative)
--- NOTE | 2024-10-20 20:11 | CRLHL7_ITS ---
For Patients: As a result of the Century Cures Act, medical imaging exams and procedure reports are released immediately into your electronic medical record. You may view this report before your referring provider. If you have questions, please contact your health care provider. INDICATION: Cough, shortness of breath earlier COMPARISON: None. TECHNIQUE: Single frontal radiographic view(s) of the chest. FINDINGS: No substantial pleural effusion. No definite focal pulmonary consolidation. Normal heart size. No acute osseous findings. IMPRESSION: No acute thoracic findings. Dictated by Migel Burger MD @ 10/20/2024 8:30:07 PM (Electronically Signed)
--- OUTSIDE RECORDS SUMMARY | 2024-10-20 20:18 | XMS_ITS | Clinical Summary ---
Author Organization [facility] Address [place], [place] [address] Care Team Providers Care Appeals Representative Name Role Phone Amna Rojas Primary Care [...] Department Care Team Description 09/05/2024 2:40 PM DIRECTOR OF TRAUMA Office Visit [facility] [address] [place] [address] Dottie Lizarraga MD Establish Care; [...] Sex Assigned at Female 09/05/2024 1:58 AM DIRECTOR OF TRAUMA Legal Sex Female 5:22 AM DIRECTOR OF TRAUMA Gender Identity Female 09/05/2024 1:58 AM DIRECTOR OF TRAUMA Sexual Orientation Not on file Obstetrics History Last Filed Vital Signs Vital Sign Reading Time Taken Comments Blood Pressure 108/76 09/05/2024 2:55 PM DIRECTOR OF TRAUMA Pulse 83 09/05/2024 2:55 PM DIRECTOR OF TRAUMA Temperature 37.1 C (98.7 F) 05/28/2024 10:23 AM CDT Respiratory Rate 18 02/09/2023 4:21 PM CDT Oxygen Saturation 99% 09/05/2024 2:55 PM DIRECTOR OF TRAUMA Inhaled Oxygen Concentration - - Weight 66 [...] Comments URINE POCT Routine 09/05/2024 4:12 PM DIRECTOR OF TRAUMA RLQ abdominal pain CHLAMYDIA/NEISSERIA GONORRHOEAE RNA, TMA, UROGENITAL ([facility]) Routine 06/06/2024 3:00 PM CDT Vaginal discharge SLITTER AND CUTTER OPERATOR THIN PREP PAP SCREEN IMAGED Routine 07/23/2023 1:52 PM DIRECTOR OF TRAUMA Screening for cervical cancer ANTI HIV 1/2 Routine 06/20/2023 10:05 AM CDT Screen for STD (sexually transmitted disease) ANTI HCV Routine 06/20/2023 10:05 AM CDT Screen for STD (sexually transmitted disease) from Last 3 Months or Most Recently Relevant to Health Maintenance Results * POCT Urine (09/05/2024 4:12 PM DIRECTOR OF TRAUMA) POC HCG URINE NEGATIVE NEGATIVE [facility] Urine URINE SPECIMEN / Unknown 09/05/2024 4:12 PM DIRECTOR OF TRAUMA 09/05/2024 4:12 PM DIRECTOR OF TRAUMA Dottie Lizarraga MD URINE Fi nal Result [facility] [address] [place] [address], [place] [phone] [facility] [address] [place] [address] * CHLAMYDIA/NEISSERIA GONORRHOEAE RNA, TMA, UROGENITAL ([facility]) (06/06/2024 3:00 PM CDT) CHLAMYDIA TRACHOMATIS RNA, TMA, UROGENITAL NOT DETECTED NOT DETECTED [facility] NEISSERIA GONORRHOEAE RNA, TMA, UROGENITAL NOT DETECTED NOT DETECTED [facility] Comment: The analytical performance characteristics of this assay, when used to test SurePath(TM) specimens have been determined by [facility]. The modifications have not been cleared or approved by the FDA. This assay has been validated pursuant to the CLIA regulations and is used for clinical purposes. For additional information, please refer to https://education.MooBella/faq/TQG717 (This link is being provided for information/ educational purposes only.) Other VAGINAL SWAB / Unknown 06/06/2024 3:00 PM CDT 06/06/2024 3:01 PM CDT Dottie Lizarraga MD SEND OUTS Fi nal Result [facility] [place] [address] [place] [address], [facility] [address] [place] [address] * SLITTER AND CUTTER OPERATOR THIN PREP PAP SCREEN IMAGED (07/23/2023 1:52 PM DIRECTOR OF TRAUMA) Case Report Gynecologic Cytology Report Case: [id number] Authorizing Provider: Amna Rojas PA Collected: 07/23/2023 1352 Ordering Location: [facility] Received: 07/23/2023 1431 Clinic First Screen: Sabrina Pickering Pathologist: Son Barrera Jr., MD Specimen: SLITTER AND CUTTER OPERATOR ThinPrep Vial Screening, Cervical 08/06/2023 3:12 PM DIRECTOR OF TRAUMA [facility] INTERPRETATION/ RESULT NEGATIVE FOR INTRAEPITHELIAL LESION OR MALIGNANCY (NIL) (none) 08/06/2023 3:12 PM DIRECTOR OF TRAUMA [facility] R NON-NEOPLASTIC FINDING(S) Reactive cellular changes associated with inflammation/repa ir 08/06/2023 3:12 PM DIRECTOR OF TRAUMA [facility] SPECIMEN ADEQUACY Satisfactory for evaluation Endocervical component present 08/06/2023 3:12 PM DIRECTOR OF TRAUMA [facility] Date of LMP 06-27-23 08/06/2023 3:12 PM DIRECTOR OF TRAUMA [facility] Last Pap Date none 08/06/2023 3:12 PM DIRECTOR OF TRAUMA [facility] Last Pap Result First Pap/Unknown 3:12 PM DIRECTOR OF TRAUMA [facility] Abnormal Pap or Geff Bx in last 5 years No 08/06/2023 3:12 PM DIRECTOR OF TRAUMA [facility] Menstrual Status Regular Periods 08/06/2023 3:12 PM DIRECTOR OF TRAUMA [facility] Geff Bx Done Today No 08/06/2023 3:12 PM DIRECTOR OF TRAUMA [facility] Additional Information None given 08/06/2023 3:12 PM DIRECTOR OF TRAUMA [facility] Comment: Cytology is screened at [facility] - [address], [place] [address] and [facility] - [address], [place] [address] and [facility] - [address] [place] [address] Interpreted at [facility] - [address], [place] [address] Automated Review Successful 08/06/2023 3:12 PM DIRECTOR OF TRAUMA [facility] Comment:Specimen processed s uccessfully by automated clinical psychology teacher device, ThinPrep Imaging System, [employer] Note The pap test is a screening technique, not a diagnostic procedure. It is used primarily to screen for squamous cancers and precursor lesions. Published studies have shown that it is subject to both false negative and false positive results. The pap test should not be used as the sole means to diagnose or exclude pre-malignant and malignant lesions. 08/06/2023 3:12 PM DIRECTOR OF TRAUMA [facility]-C ENTRAL LABORATORY Other (Cervical) Non-Blood / Unknown 07/23/2023 1:52 PM DIRECTOR OF TRAUMA 07/23/2023 2:31 PM DIRECTOR OF TRAUMA Amna JAMES PATHOLOGY/CYTOLOGY Maggie l Result Performing Organization Address City/[facility] Co de Phone Number [facility] [address] [place] [phone], [place] * ANTI HCV (06/20/2023 10:05 AM CDT) HEPATITIS C ANTIBODY Non-Reacti ve Non-React lupe 06/20/2023 4:50 PM CDT [facility] Comment:Please note, per www .CDC.gov: [...] OUTS Final R esult Performing Organization Address City/[facility]/ZIP Co de Phone Number [facility] [address] [place] [phone], [place] * ANTI HIV 1/2 (06/20/2023 10:05 AM CDT) HIV-1/HIV-2 SCREEN Non-Reacti ve Non-Reacti ve 06/20/2023 4:42 PM CDT [facility] TR[facility]ORATORY Comment:HIV-1 p24 and HIV-1/ HIV-2 Ab Not Detected. Blood BLOOD SPECIMEN / Unknown Venipuncture / Unknown 06/20/2023 10:05 AM CDT 06/20/2023 10:06 AM CDT us Amna JAMES SEND OUTS Final R esult [facility] [address] [place] [address], [place] from Last 3 Months or Most Recently Relevant to Health Maintenance Insurance MEDICAID MEDICAID [facility] Care Teams Appeals Representative Relationship Specialty Start Date End Date Amna [place] [address] PCP - General Physician Rim Roller Setter 05/19/20
[2024-10-20 20:30] LABS: Basophils Absolute Auto 0.03 K/uL (0.00-0.30); Basophils Percent Auto 0.3 % (0.0-3.0); Eosinophils Absolute Auto 0.34 K/uL (0.00-0.50); Eosinophils Percent Auto 3.8 % (0.0-7.0); Hematocrit 38.6 % (33.0-51.0); Immature Granulocytes Abs Auto 0.03 K/uL (0.00-0.30); Immature Granulocytes Pct Auto 0.3 %; Lymphocytes Absolute Auto 2.17 K/uL (0.90-2.90); Lymphocytes Percent Auto 24.1 % (20-44); Mean Corpuscular HGB Conc 34 gm/dL (32-36); Mean Corpuscular Hemoglobin 31 pg (26-34); Mean Corpuscular Volume 93 fL (80-100); Neutrophils Percent Auto 64.5 % (42.0-72.0); Platelet Count* 278 K/uL (140-440); RDW Coefficient of Variation % 11.7 % (11.5-15.5); Red Blood Count 4.17 m/uL (4.00-5.20)
[2024-10-20 20:36] LABS: Slide Review Reflex No
[2024-10-20 20:49] LABS: Chloride* 102 mmol/L (96-114); Sodium* 137 mmol/L (135-149)
[2024-10-20 20:50] LABS: Potassium* 4.1 mmol/L (3.6-5.1)
[2024-10-20 20:52] LABS: Creatinine* 0.6 mg/dL (0.5-1.5); Est. Creatinine Clearance* 115.33; Estimated Glomerular Filt Rate 129 ml/min
[2024-10-20 20:53] LABS: Anion Gap 12 mEq/L (7-15); Blood Urea Nitrogen* 12 mg/dL (5-24); Carbon Dioxide* 23 mmol/L (20-32); Glucose* 90 mg/dL (60-115)
[2024-10-20 20:54] LABS: Calcium* 9.3 mg/dL (8.4-10.6)
[2024-10-20 21:01] LABS: C Reactive Protein* < 0.5 mg/dL (0.5-1.0)
[2024-10-20 21:41] VITALS: BP 107/64; PULSE 80; RESP 16; O2SAT 99
== END 2024-10-20 21:44 | disposition home or self-care (01) ==
PROVIDERS: Emergency Provider Family Medicine; PCP Physician Assistant Medical
DX: B34.9 Viral infection, unspecified (principal)
CPT/HCPCS: 36415; 71045; 80048; 84484; 85025; 86140; 87631; 93005; 99283; 99284

== ENCOUNTER 2025-07-01 08:21 | Outpatient (CLI) | payer MEDICAID, SELFPAY ==
[2025-07-01 12:26] LABS: Bacterial Vaginosis* POSITIVE (Negative); Candida glab/krus NOT DETECTED (No Detected)
[2025-07-01 12:54] LABS: Chlamydia DNA Amplified* NOT DETECTED (No Detected); GC DNA Amplified* NOT DETECTED (No Detected)
== END 2025-07-01 08:22 | disposition home or self-care (01) ==
PROVIDERS: PCP Physician Assistant Medical; Visit Provider Registered Nurse
DX: R10.20 Pelvic and perineal pain unspecified side (principal)
CPT/HCPCS: 81513; 87086; 87481; 87491; 87591; 87661

== ENCOUNTER 2025-07-03 09:37 | Emergency (ER) | payer MEDICAID, SELFPAY ==
--- OUTSIDE RECORDS SUMMARY | 2025-07-03 09:40 | XMS_ITS | Clinical Summary ---
Author Organization [employer] [facility] Address [address] [place] [id number] Care Team Providers Care Energy Director Name Role Phone Jero Rojas Primary Care Provider Allergies No known active allergies Medications albuterol HFA (PRO-AIR; VENTOLIN; PROVENTIL) 90 mcg/actuation inhalerIndications :Cough, unspecified type Inhale 1-2 Puffs by mouth every 4 hours if needed for Shortness Of Breath. 1 Each 1 5 Active ondansetron (ZOFRAN ODT) 4 mg disintegrating tabletIndications: Nausea and vomiting, unspecified vomiting type Place 1 Tablet (4 mg) on the tongue every 8 hours if needed for Nausea/Vomiti ng. 30 Tablet 1 5 Active triamcinolone 0.5 % creamIndications:A cute eczema Apply topically to affected area(s) two times daily. 15 g 3 5 Active Active Problems Problem Noted Date Diagnosed Date Pap smear for cervical cancer screening 08/06/20 23 Overview (08/06/2023): 07/2023 NIL Plan: Pap/HPV due 07/2026 Trapezius strain, right, initial encounter 02/09 Mild intermittent asthma without complication MDD (major depressive disord er), recurrent episode, moderate 05/30/2016 AYAN (generalized anxiety disorder) 05/30/2016 PTSD (post-traumatic stress disorder) Provisiona l 05/30/2016 Encounters Date Type Department Care Team Description 07/03/2025 Nurse Triage [facility] [address] [place] [address] Jero Rojas PA Jaw Pain (Bottom/back right side) 06/18/2025 2:30 PM CDT Ancillary Procedure [facility] [address] [facility] [place] [address] 06/18/2025 Travel 06/03/2025 2:00 PM CDT Office Visit [address] [place] [address] Jero Rojas PA Follow Up (And pain - still having ongoing and pain, was told to have a f/u) 06/03/2025 Travel 05/28/2025 11:00 AM CDT Ancillary Procedure [facility] [address] [facility] [place] [address] 05/28/2025 Travel 05/26/2025 11:00 AM CDT Ancillary Procedure [facility] [address] [facility] [place] [address] 2025 10:40 AM CDT Office Visit [facility] [address] [facility] [place] [address] Dottie Lizarraga MD Vaginal Problem (Has had BV and yeast in the past - odorous ) 2025 Travel 05/14/2025 Travel 05/12/2025 7:00 AM CDT Orders Only [address] [place] [address] Lab, [place] [facility] 05/12/2025 Travel 04/27/2025 3:00 PM CDT Ancillary Procedure [facility] [address] [facility] [place] [address] 04/26/2025 Travel 04/24/2025 3:00 PM CDT Office Visit [facility] [address] [facility] [place] [address] Jero Rojas PA Physical (24 years old); Abdominal Pain (Sharp pains lower R and L sides, randomly x 1 year); Chest Pain (Pain Mid to L side of chest and under breast, random- can happen when active and not active. Will last a max of 20 min x 2 months) 04/24/2025 Travel from Last 3 Months Immunizations Immunization Administration Dates Next Due COVID-19 vaccine (Moderna [...] History Relation Name Comments Good Health Brother 1 Margarito paraplegic Brother 1 Margarito Unknown Father Lewis Psychiatric illness Mother [place] depressi on Bone cancer Paternal Grandmother Cancer-breast Paternal Grandmother Relation Name Status Comments Brother 1 Margarito Alive Brother 2 Louie Alive Brother 3 Harpreet Father Lewis Alive Mother [place] Alive Paternal Grandmother Social History Tobacco Use Types Packs/Day Years [...] Sex Assigned at Female 09/05/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 Sex Female 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 Gender Identity Female 09/05/2024 1:58 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 Sexual Orientation Not on file Obstetrics History Last Filed Vital Signs Vital Sign Reading Time Taken Comments Blood Pressure 101/69 06/03/2025 2:08 PM CDT Pulse 81 06/03/2025 2:08 PM CDT Temperature 37.1 C (98.7 F) 05/28/2024 10:23 AM CDT Respiratory Rate 18 02/09/2023 4:21 PM CDT Oxygen Saturation 98% 2025 10:51 AM CDT Inhaled Oxygen Concentration - - Weight 64 kg (141 lb) 06/03/2025 2:08 PM CDT Height 161.3 cm (5' 3.5) 04/24/2025 3:06 PM CDT Body Mass Index 24.59 04/24/2025 3:06 PM CDT Plan of Treatment Health Maintenance Due Date Last Done Comments Pneumococcal series for age 6-49 (1 of 2 - PCV) 2020 09/16/2002, 05/27/2002, 02/14/2002, Additional history exists Tetanus booster 08/07/2023 08/07/2013 Influenza Vaccine (#1) 2025 08/07/2013 Depression screening for age 12+ 09/05/2025 09/05/2024, 07/06/2021, 01/05/2021, Additional history exists BMI (ht and wt on same day) for age 18+ 04/24/2026 04/24/2025, 01/21/2024, 02/02/2023, Additional history exists Chlamydia for age 16-24 2026 05/25/20, 06/06/2024, 03/21/2024, Additional history exists Pap test for age 21-65 07/23/2026 07/23/2023 RSV vaccine for adults or (1 - 1-dose 75+ series) 2076 Hepatitis B series for 19+ Completed 09/16, 2001, 2001 HPV series for age 9-45 Completed 02/07/20 14, 10/09/2013, 08/07/2013 HIV for age 15-65 Completed 06/20/2023, , 09/16/2021 Hepatitis C screening for ag e 18-79 Completed 06/20/2023, 09/16/2021 Procedures Procedure Name Priority Date/Time Associated Diagnosis Comments US PELVIS COMPLETE TV Routine 06/18/2025 2:33 PM CDT Abdominal pain, RLQ (right lower quadrant) ECHO TTE COMPLETE WO CONTRAST Routine 05/28/2025 11:41 AM CDT Chest pain, unspecified type MR ABDOMEN LIVER WWO Routine 05/26/2025 12:26 PM CDT Liver mass GC CHLAMYDIA TRACH PROBE Routine 2025 11:19 AM CDT History of chlamydia TRICHOMONAS, DANIKA, AND BACTERIAL VAGINOSIS BY ROXANA Routine 2025 11:19 AM CDT Vaginal odor URINALYSIS MICROSCOPIC Routine 7:05 AM CDT Bladder wall thickening URINE CULTURE Routine 05/12/2025 7:05 AM CDT Bladder wall thickening URINALYSIS [facility] ONLY POC DIP ([facility]) Routine 05/12/2025 7:05 AM CDT Bladder wall thickening LIPASE Routine 05/12/2025 7:05 AM CDT Abdominal pain, RLQ (right lower quadrant) COMP METABOLIC PANEL Routine 05/12/2025 7:05 AM CDT Abdominal pain, RLQ (right lower quadrant) CELIAC CASCADE PANEL Routine 05/12/2025 7:05 AM CDT Abdominal pain, RLQ (right lower quadrant) LIPOPROTEIN A Routine 05/12/2025 7:05 AM CDT Coronary artery calcification APOLIPOPROTEIN B Routine 05/12/2025 7:05 AM CDT Coronary artery calcification LIPID PANEL W REFLEX MEASURED LDL Routine 05/12/2025 7:05 AM CDT Coronary artery calcification CALPROTECTIN FECAL Routine 05/12/2025 7: 05 AM CDT Abdominal pain, RLQ (right lower quadrant) CT ABDOMEN PELVIS W Routine 04/27/2025 3 :23 PM CDT Abdominal pain, RLQ (right lower quadrant) 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 Small amount of free fluid in the pelvis. Dictated by Jocelyn De Anda MD @ 06/21/2025 9:25:15 AM (Electronically Signed) Narrative 06/21/2025 9:25 AM CDT For Patients: As a result of the Cures Act, medical imaging exams and procedure reports are released immediately into your electronic medical record. You may view this report before your referring provider. If you have questions, please contact your health care provider. CLINICAL HISTORY: Right lower quadrant pain TECHNIQUE: Real time, matute scale images were acquired of the pelvis using a transabdominal and transvaginal approach. Color Doppler analysis was performed of the ovaries. FINDINGS: The uterus measures 6.9 x 3.2 x 4.6 centimeters. The endometrium measures 6 millimeters. Ovaries are unremarkable. Right ovary measures 3.4 x 2.2 x 2.9 Left ovary measures 3.3 x 2.5 x 3.8 centimeters. Normal blood flow to both ovaries. Small amount of fluid in the pelvis. Procedure Note Jocelyn De Anda MD - 06/21/2025 For Patients: As a result of the Cures Act, medical imagingexams and procedure reports are released immediately into your electronicmedical record. You may view this report before your referring provider.If you have questions, please contact your health care provider. CLINICAL HISTORY: Right lower quadrant pain TECHNIQUE: Real time, matute scale images were acquired of the pelvis using atransabdominal and transvaginal approach. Color Doppler analysis wasperformed of the ovaries. FINDINGS: The uterus measures 6.9 x 3.2 x 4.6 centimeters. The endometrium measures6 millimeters. Ovaries are unremarkable. Right ovary measures 3.4 x 2.2 x 2.9 Left ovary measures 3.3 x 2.5 x 3.8 centimeters. Normal blood flow to both ovaries. Small amount of fluid in the pelvis. IMPRESSION: Unremarkable pelvic ultrasound. Small amount of free fluid in thepelvis. Dictated by Jocelyn De Anda MD @ 06/21/2025 9:25:15 AM (Electronically Signed) us Jero JAMES US Final R esult * ECHO TTE COMPLETE WO CONTRAST (05/28/2025 11:41 AM CDT) AORTIC VALVE MEAN PG 5 mmHg EJECTION FRACTION 61 % LVEDD 4.5 cm EJECTION FRACTION 60 - 65% Anatomical Region Laterality Modality Ultrasound 05/28/2025 11:1 1 AM CDT Narrative 05/28/2025 1:54 PM CDT ECHOCARDIOGRAM CCOO PONCE : 2000 25 years Study Date: 05/28/2025 11:11:27 AM Gender: F BP: 112/53 mmHg Height: 163.00 cm BSA: 1.71 m Weight: 66.00 kg Tech: [facility] Referring MD: JERO ROJAS Site: [facility] Reading Location: Mobile-OP Patient Location: Outpatient. Procedure: 2D, Color Doppler and Spectral Doppler. Indication for study: Chest Pain Cardiac Rhythm: Regular.Study quality: Good. Final Impressions: 1. Normal left ventricular size, normal wall thickness, normal global systolic function, calculated EF of 61 %. 2. Right ventricular cavity size is normal, global systolic RV function is normal. 3. Normal left atrium size. 4. The aortic valve is normal and trileaflet, no stenosis and no regurgitation. 5. The mitral valve is normal, no mitral regurgitation. 6. Tricuspid valve is normal, regurgitation is not evident tricuspid regurgitation. 7. No pericardial effusion. Chamber Sizes and Function Normal left ventricular size, normal wall thickness, normal global systolic function, calculated EF of 61 %. No resting regional wall motion abnormality visualized. Left atrial size is normal. Left atrial pressure is normal. Right ventricular cavity size is normal, global systolic RV function is normal. RV wall thickness is normal. The right atrium is normal. Right atrial volume index is 16 ml/m . Right atrial area is 11 cm . The pulmonary artery is of normal size and origin. The sinus of Valsalva is normal sized. The ascending aorta is normal sized. Valves, RV Pressures and Diastolic Function The aortic valve is normal in structure and trileaflet, no stenosis and no regurgitation. The mitral valve is normal in structure, no mitral regurgitation. Normal diastolic function. The tricuspid valve is normal in structure, regurgitation is not evident tricuspid regurgitation. The pulmonic valve is normal. No pulmonary regurgitation. Masses, Effusion, Shunts There is no pericardial effusion. The inferior vena cava is normal sized, respiratory size variation greater than 50%. No left to right shunting was detected by limited color flow Doppler interrogation of the interatrial septum. MEASUREMENTS AND CALCULATIONS 2-D Measurements and LV Function: LVID (d) 4.5 cm Planimetered EF 61 % LVID (s) 2.8 cm LV FS% (2D) 38 % IVS (d) 0.8 cm LVOT diameter 1.9 cm LVPW (d) 0.8 cm HR 85 bpm Ao Sinus 2.7 cm LA Vol index 15 ml/m2 Ao Sinus ULN 3.3 cm RA Vol index 16 ml/m2 Asc Ao 2.6 cm RA area 11 cm Asc Ao ULN 3.1 cm RV Basal Diam 2.2 cm LA 2.9 cm Diastology: Mitral Tissue Doppler E Peak 0.9 m/s e', Septum 0.12 m/s A Peak 0.7 m/s e', Lateral 0.16 m/s E/A 1.3 E/e' Average 6.43 DT 199 msec Aortic Valve: Vmax 1.4 m/s LIBORIO (V) 2.22 cm VTI 0.27 m LIBORIO (I) 2.01 cm LVOT V max 1.2 m/s Max PG 8 mmHg LVOT VTI 0.20 m Mean PG 5 mmHg SV 55 ml Dim Index 0.72 SV index 32 ml/m CO 4.6 l/min CI 2.7 l/min/m Mitral Valve: MVA 3.8 cm MV P 1/2 58 msec Tricuspid Valve and estimated PA pressures: TAPSE 1.9 cm Pulmonic Valve: PV AT 175 msec . This study was interpreted by an [facility] accredited facility. Final Procedure Note Rama Guaman, [facility] - 05/28/2025 ECHOCARDIOGRAM COCO Erickson MATTHIAS : 2000 25 years Study Date: 05/28/2025 11:11:27 AM Gender: F BP: 112/53 mmHg Height: 163.00 cm BSA: 1.71 m Weight: 66.00 kg Tech: [facility] Referring MD: JERO ROJAS Site: [facility] Reading Location: Mobile-OP Patient Location: Outpatient. Procedure: 2D, Color Doppler and Spectral Doppler. Indication for study: Chest Pain Cardiac Rhythm: Regular.Study quality: Good. Final Impressions: 1. Normal left ventricular size, normal wall thickness, normal globalsystolic function, calculated EF of 61 %. 2. Right ventricular cavity size is normal, global systolic RV functionis normal. 3. Normal left atrium size. 4. The aortic valve is normal and trileaflet, no stenosis and noregurgitation. 5. The mitral valve is normal, no mitral regurgitation. 6. Tricuspid valve is normal, regurgitation is not evident tricuspidregurgitation. 7. No pericardial effusion. Chamber Sizes and Function Normal left ventricular size, normal wall thickness, normal globalsystolic function, calculated EF of 61 %. No resting regional wall motionabnormality visualized. Left atrial size is normal. Left atrial pressureis normal. Right ventricular cavity size is normal, global systolic RVfunction is normal. RV wall thickness is normal. The right atrium isnormal. Right atrial volume index is 16 ml/m . Right atrial area is 11cm . The pulmonary artery is of normal size and origin. The sinus ofValsalva is normal sized. The ascending aorta is normal sized. Valves, RV Pressures and Diastolic Function The aortic valve is normal in structure and trileaflet, no stenosis and noregurgitation. The mitral valve is normal in structure, no mitralregurgitation. Normal diastolic function. The tricuspid valve is normal instructure, regurgitation is not evident tricuspid regurgitation. Thepulmonic valve is normal. No pulmonary regurgitation. Masses, Effusion, Shunts There is no pericardial effusion. The inferior vena cava is normal sized,respiratory size variation greater than 50%. No left to right shunting wasdetected by limited color flow Doppler interrogation of the interatrialseptum. MEASUREMENTS AND CALCULATIONS 2-D Measurements and LV Function: LVID (d) 4.5 cm Planimetered EF 61 % LVID (s) 2.8 cm LV FS% (2D) 38 % IVS (d) 0.8 cm LVOT diameter 1.9 cm LVPW (d) 0.8 cm HR 85 bpm Ao Sinus 2.7 cm LA Vol index 15 ml/m2 Ao Sinus ULN 3.3 cm RA Vol index 16 ml/m2 Asc Ao 2.6 cm RA area 11 cm Asc Ao ULN 3.1 cm RV Basal Diam 2.2 cm LA 2.9 cm Diastology: Mitral Tissue Doppler E Peak 0.9 m/s e', Septum 0.12 m/s A Peak 0.7 m/s e', Lateral 0.16 m/s E/A 1.3 E/e' Average 6.43 DT 199 msec Aortic Valve: Vmax 1.4 m/s LIBORIO (V) 2.22 cm VTI 0.27 m LIBORIO (I) 2.01 cm LVOT V max 1.2 m/s Max PG 8 mmHg LVOT VTI 0.20 m Mean PG 5 mmHg SV 55 ml Dim Index 0.72 SV index 32 ml/m CO 4.6 l/min CI 2.7 l/min/m Mitral Valve: MVA 3.8 cm MV P 1/2 58 msec Tricuspid Valve and estimated PA pressures: TAPSE 1.9 cm Pulmonic Valve: PV AT 175 msec . This study was interpreted by an [facility] accredited facility. Final us Jero JAMES ECHO ORD Final R esult * MR ABDOMEN LIVER WWO (05/26/2025 12:26 PM CDT) Anatomical Region Laterality Modality Abdomen, LIVER Magnetic Resonan ce 05/27/2025 12:3 4 PM CDT Impressions 05/27/2025 12:34 PM CDT A 3 cm lesion identified at the junction of segments 6 and 7 of the liver most likely representing an FNH; follow-up MRI of the liver in 6 months using Eovist suggested. Dictated by Christina Leslie MD @ May 27 2025 12:34PM (Electronically Signed) [email or web address] Narrative 05/27/2025 12:34 PM CDT For Patients: As a result of the Cures Act, medical imaging exams and procedure reports are released immediately into your electronic medical record. You may view this report before your referring provider. If you have questions, please contact your health care provider. INDICATION: Liver lesion; further evaluation. COMPARISON: CT abdomen and pelvis with and without contrast April 27, 2025. TECHNIQUE: Precontrast T1 and T2 weighted imaging; T2 haste imaging; diffusion-weighted imaging; in- and out of phase imaging; postcontrast imaging including subtraction; 13 cc of clariscan contrast was injected IV. FINDINGS: A 3 cm lesion at the junction of segments 6 and 7 of the liver ,barely identified on the precontrast T2 haste imaging, with slightly lower signal than the surrounding liver. Enhancing central scar on the delayed imaging. Even though there is no brisk enhancement during arterial phase imaging , this most likely represents an FNH. No evidence of fatty infiltration of the liver. No other focal hepatic or splenic abnormality. No pancreatic pathology. Gallbladder is unremarkable. No adrenal pathology. Kidneys are unremarkable. No retroperitoneal lymphadenopathy. No evidence of abdominal ascites. Procedure Note Christina Leslie, ROLANDO - 05/27/2025 For Patients: As a result of the Cures Act, medical imagingexams and procedure reports are released immediately into your electronicmedical record. You may view this report before your referring provider.If you have questions, please contact your health care provider. INDICATION: Liver lesion; further evaluation. COMPARISON: CT abdomen and pelvis with and without contrast April 27, 2025. TECHNIQUE: Precontrast T1 and T2 weighted imaging; T2 haste imaging;diffusion-weighted imaging; in- and out of phase imaging; postcontrastimaging including subtraction; 13 cc of clariscan contrast was injectedIV. FINDINGS: A 3 cm lesion at the junction of segments 6 and 7 of the liver ,barelyidentified on the precontrast T2 haste imaging, with slightly lowersignal than the surrounding liver. Enhancing central scar on the delayedimaging. Even though there is no brisk enhancement during arterial phaseimaging , this most likely represents an FNH. No evidence of fattyinfiltration of the liver. No other focal hepatic or splenic abnormality.No pancreatic pathology. Gallbladder is unremarkable. No adrenalpathology. Kidneys are unremarkable. No retroperitoneal lymphadenopathy.No evidence of abdominal ascites. IMPRESSION: A 3 cm lesion identified at the junction of segments 6 and 7 of the livermost likely representing an FNH; follow-up MRI of the liver in 6 monthsusing Eovist suggested. Dictated by Christina Leslie MD @ May 27 2025 12:34PM (Electronically Signed) [email or web address] Jero JAMES MR Final R esult * (ABNORMAL) TRICHOMONAS, DANIKA, AND BACTERIAL VAGINOSIS BY ROXANA (2025 11:19 AM CDT) DANIKA SPECIES Negative Negative 7:35 PM CDT [facility] DANIKA GLABRATA Negative Negative 2025 7:35 PM CDT [facility] TRICHOMONAS VVA Negative Negative 7:35 PM CDT [facility] BACTERIAL VAGINOSIS Positive(A) Negative 2025 7:[address] [facility] Other VAGINAL SWAB / Unknown Non-Blood / Unknown 2025 11:19 AM CDT 2025 11:19 AM CDT Dottie Lizarraga MD MICROBIOLOGY Fi nal Result [facility] [address] [place] [address], [place] * GC & CHLAMYDIA DNA PCR [[id number]] (2025 11:19 AM CDT) CHLAMYDIA PROBE Negative 8:07 PM CDT [facility] N GONORRHOEAE PROBE Negative 2025 8:07 PM CDT [facility] Other VAGINAL SWAB / Unknown Non-Blood / Unknown 2025 11:19 AM CDT 2025 11:19 AM CDT Dottie Lizarraga MD MICROBIOLOGY Fi nal Result [facility] [address] [place] [address], [place] * LIPOPROTEIN A (05/12/2025 7:05 AM CDT) Pathologist [facility] LIPOPROTEIN (a) <10 nmol/L 11:48 AM CDT [facility] Comment: Verified by repeat analysis. Reference Range <75 Risk: Optimal <75 Moderate 75-125 High >125 Cardiovascular event risk category cut points (optimal, moderate, high) are based on Juan M Viera [facility] 2017;[id number]. Blood BLOOD SPECIMEN / Unknown [facility] / Unknown 05/12/2025 7:05 AM CDT 05/12/2025 7:05 AM CDT Jero JAMES SEND OUTS Final R esult [facility] [address] [address], [place] [phone] * (ABNORMAL) POCT Urinalysis Dipstick Only [[id number]] (05/12/2025 7:05 AM CDT) Pathologist [facility] SPECIFIC GRAVITY > OR = 1.030 1.001 - 1.035 05/12/2025 8:26 AM CDT [facility] Comment: Specific [place] values resulted are outside the analytical measurement range of this device. Recommend repeat/additional testing as clinically indicated. PROTEIN NEGATIVE NEGATIVE 05/12/2025 8:26 AM CDT [facility] GLUCOSE NEGATIVE NEGATIVE 05/12/2025 8:26 AM CDT [facility] KETONES NEGATIVE NEGATIVE 05/12/2025 8:26 AM CDT [facility] BILIRUBIN NEGATIVE NEGATIVE 05/12/2025 8:26 AM CDT [facility] OCCULT BLOOD 2+(A) NEGATIVE 05/12/2025 8:26 AM CDT [facility] NITRITE NEGATIVE NEGATIVE 05/12/2025 8:26 AM CDT [facility] PH 6.0 5.0 - 8.0 05/12/2025 8:26 AM CDT [facility] LEUKOCYTE ESTERASE TRACE(A) NEGATIVE 05/12/2025 8:26 AM CDT [facility] Urine URINE SPECIMEN / Unknown Non-Blood / Unknown 05/12/2025 7:05 AM CDT 05/12/2025 7:05 AM CDT Jero JAMES URINE Final R esult Performing Organization Address City/[facility]/ZIP Co de Phone Number [facility] [address] [address], [place] [phone] [facility] [address] [place] [address], [place] [phone] * CELIAC CASCADE PANEL (05/12/2025 7:05 AM CDT) IMMUNOGLOBULIN A 242 47 - 310 mg/dL 05/14/2025 2:10 AM CDT [facility] CELIAC DISEASE COMPREHENSIVE PANEL INTERPRETATION SEE NOTE 05/14/2025 2:10 AM CDT [facility] Comment: No serological evidence of celiac disease. tTG IgA may normalize in individuals with celiac disease who maintain a gluten-free diet. Consider HLA DQ2 and DQ8 testing to rule out celiac disease. Celiac disease is extremely rare in the absence of DQ2 or DQ8. TISSUE TRANSGLUTAMINASE AB, IGA <1.0 U/mL 05/14/2025 2:10 AM CDT [facility] Comment: Value Interpretation ----- <15.0 Antibody not detected > or = 15.0 Antibody detected Blood BLOOD SPECIMEN / Unknown [facility] / Unknown 05/12/2025 7:05 AM CDT 05/12/2025 7:05 AM CDT Jero JAMES SEND OUTS Final R esult [facility] [address] [place] [address], * APOLIPOPROTEIN B (05/12/2025 7:05 AM CDT) APOLIPOPROTEIN B 49 mg/dL 05/15/20 12:40 PM CDT [facility] Comment: Reference Range: <90 Risk Category: Optimal <90 Moderate 90-129 High > or = 130 A desirable treatment target may be <80 mg/dL or lower depending on the risk category of the patient including patients on lipid lowering therapies, patients with ASCVD, diabetes with >1 risk factors, Stage 3 or greater CKD with albuminuria, or heterozygous familial hypercholesterolemia. ApoB relative risk category cut points are based on AACE/JUAN and ACC/AHA recommendations (Toy SM, et al. 2019. doi:10.1016/j.jacc.2018.11.002; Ac Y, et al. 2020. doi:10.5014/[id number]). Blood BLOOD SPECIMEN / Unknown [facility] / Unknown 05/12/2025 7:05 AM CDT 05/12/2025 7:05 AM CDT Jero JAMES SEND OUTS Final R esult [facility] [address] [address], * CALPROTECTIN FECAL (05/12/2025 7:05 AM CDT) CALPROTECTIN, STOOL 91 mcg/g 05/22/2025 2:38 AM CDT [facility] Comment: Reference Range: <50 Normal 50-120 Borderline >120 Elevated Calprotectin in Crohn's disease and ulcerative colitis can be five to several thousand times above the reference population (50 mcg/g or less). Levels are usually 50 mcg/g or less in healthy patients and with irritable bowel syndrome. Repeat testing in 4-6 weeks is suggested for borderline values. Stool STOOL SPECIMEN / Unknown Non-Blood / Unknown 05/12/2025 7:05 AM CDT 05/12/2025 7:05 AM CDT Jero JAMES SEND OUTS Final R esult [facility] [address] [place] [address], * LIPID PANEL W REFLEX MEASURED LDL (05/12/2025 7:05 AM CDT) CHOLESTEROL, TOTAL 123 <200 mg/dL 05/13/2025 6:50 AM CDT [facility] TRIGLYCERIDES 55 <150 mg/dL 05/13/2025 6:50 AM CDT [facility] HDL CHOLESTEROL 53 > OR = 50 mg/dL 05/13/2025 6:50 AM CDT [facility] NON HDL CHOLESTEROL 70 <130 mg/dL (calc) 05/13/2025 6:50 AM CDT [facility] Comment: For patients with diabetes plus 1 major ASCVD risk factor, treating to a non-HDL-C goal of <100 mg/dL (LDL-C of <70 mg/dL) is considered a therapeutic option. CHOL/HDLC RATIO 2.3 <5.0 (calc) 05/13/2025 6:50 AM CDT [facility] LDL-CHOLESTEROL 56 mg/dL (calc) 05/13/2025 6:50 AM CDT [facility] Comment: Reference range: <100 Desirable range <100 mg/dL for primary prevention; <70 mg/dL for patients with CHD or diabetic patients with > or = 2 CHD risk factors. LDL-C is now calculated using the Ernesto-Alejandro calculation, which is a validated novel method providing better accuracy than the Friedewald equation in the estimation of LDL-C. Ernesto SS et al. LUIS. 2013;310(19): 4224-5772 (http://education.Elev[employer].Funny Or Die/faq/YCI104) Blood BLOOD SPECIMEN / Unknown [facility] / Unknown 05/12/2025 7:05 AM CDT 05/12/2025 7:05 AM CDT Jero JAMES CHEMISTRY Final R esult Bridj [address] [address], [place] [phone] * (ABNORMAL) URINALYSIS MICROSCOPIC [40436.1] - routine (05/12/2025 7:05 AM CDT) RBC 3-5(A) 0-2, None Seen /HPF 05/12/2025 7:55 PM CDT [facility] WBC 3-5 0-2, 3-5, None Seen /HPF 05/12/2025 7:55 PM CDT [facility] BACTERIA Few None Seen, Rare, Few Bacteria/ HPF 05/12/2025 7:55 PM CDT [facility] EPITHELIAL CELLS Few None Seen, Few Epi/HPF 05/12/2025 7:55 PM CDT [facility] HYALINE CASTS 0-2 0-2, 3-5 /LPF 05/12/2025 7:55 PM CDT [facility] AMORPHOUS Present(A) (none) 05/12/2025 7:55 PM CDT [facility] Urine URINE SPECIMEN / Unknown Non-Blood / Unknown 05/12/2025 7:05 AM CDT 05/12/2025 7:05 AM CDT Jero JAMES URINE Final R esult [facility] [address] [place] [address], * URINE CULTURE [75219.2] (05/12/2025 7:05 AM CDT) CULTURE 10-50,000 CFU/mL of multiple organisms, probable contaminants 05/13/2025 3:44 PM CDT [facility] Urine URINE SPECIMEN / Unknown Non-Blood / Unknown 05/12/2025 7:05 AM CDT 05/12/2025 7:05 AM CDT Jero JAMES MICROBIOLOGY Final R esult [facility] [address] [place] [address], * LIPASE (05/12/2025 7:05 AM CDT) LIPASE 16 7 - 60 U/L 05/13/2025 6:50 AM CDT [facility] Blood BLOOD SPECIMEN / Unknown [facility] / Unknown 05/12/2025 7:05 AM CDT 05/12/2025 7:05 AM CDT Jero JAMES CHEMISTRY Final R esult [facility] [address] [address], * COMP METABOLIC PANEL (05/12/2025 7:05 AM CDT) SODIUM 140 135 - 146 mmol/L 05/13/2025 6:50 AM CDT [facility] POTASSIUM 4.2 3.5 - 5.3 mmol/L 05/13/2025 6:50 AM CDT [facility] CHLORIDE 105 98 - 110 mmol/L 05/13/2025 6:50 AM CDT [facility] CARBON DIOXIDE 25 20 - 32 mmol/L 05/13/2025 6:50 AM CDT [facility] GLUCOSE 84 65 - 99 mg/dL 05/13/2025 6:50 AM CDT [facility] Comment: Fasting reference interval CALCIUM 9.0 8.6 - 10.2 mg/dL 05/13/2025 6:50 AM CDT [facility] CREATININE 0.78 0.50 - 0.96 mg/dL 05/13/2025 6:50 AM CDT [facility] BUN/CREATININE RATIO SEE NOTE: 6 - 22 (calc) 05/13/2025 6:50 AM CDT [facility] Comment: Not Reported: BUN and Creatinine are within reference range. EGFR 109 > OR = 60 mL/min/1. 73m2 05/13/2025 6:50 AM CDT [facility] ALBUMIN 4.3 3.6 - 5.1 g/dL 05/13/2025 6:50 AM CDT [facility] PROTEIN, TOTAL 6.6 6.1 - 8.1 g/dL 05/13/2025 6:50 AM CDT [facility] BILIRUBIN, TOTAL 0.3 0.2 - 1.2 mg/dL 05/13/2025 6:50 AM CDT [facility] ALKALINE PHOSPHATASE 70 31 - 125 U/L 05/13/2025 6:50 AM CDT [facility] ALT 9 6 - 29 U/L 05/13/2025 6:50 AM CDT [facility] AST 13 10 - 30 U/L 05/13/2025 6:50 AM CDT [facility] UREA NITROGEN (BUN) 12 7 - 25 mg/dL 05/13/2025 6:50 AM CDT [facility] GLOBULIN 2.3 1.9 - 3.7 g/dL (calc) 05/13/2025 6:50 AM CDT [facility] ALBUMIN/GLOBULI N RATIO 1.9 1.0 - 2.5 (calc) 05/13/2025 6:50 AM CDT [facility] Blood BLOOD SPECIMEN / Unknown [facility] / Unknown 05/12/2025 7:05 AM CDT 05/12/2025 7:05 AM CDT us Jero JAMES CHEMISTRY Final R esult [facility] [address] [place] [address], [place] [phone] * CT ABDOMEN PELVIS W (04/27/2025 3:23 PM CDT) Anatomical Region Laterality Modality Abdomen, Pelvis, AORTA, LIVER, SPLEEN Computed Tomography 04/28/2025 4:52 PM CDT Impressions 04/28/2025 4:52 PM CDT 1. Mild colitis involving the ascending and transverse colon. No evidence of acute appendicitis. 2. Circumferential urinary bladder wall thickening, concerning for cystitis. Recommend correlation with urinalysis. 3. Very subtle hypodense mass in the right lobe of the liver measuring up to 3.0 cm. Recommend further evaluation with liver MRI. 4. Partially visualized significantly contrast opacified coronary arteries versus coronary artery calcifications in the lower chest, difficult to differentiate due to motion artifact. Coronary artery calcifications would be atypical given patient`s age, recommended correlation with cardiac history. Please note that all CT scans at this facility use dose modulation, iterative reconstruction, and/or weight-based dosing when appropriate to reduce radiation dose to as low as reasonably achievable. Dictated by Srinivas Johnson MD @ 04/28/2025 4:52:03 PM (Electronically Signed) Narrative 04/28/2025 4:52 PM CDT For Patients: As a result of the Cures Act, medical imaging exams and procedure reports are released immediately into your electronic medical record. You may view this report before your referring provider. If you have questions, please contact your health care provider. INDICATION: Right lower quadrant abdominal pain. TECHNIQUE: CT abdomen and pelvis acquired with 100 mL Omnipaque 350 IV contrast. COMPARISON: None. FINDINGS: Lower chest: No focal consolidation. Coronary artery calcifications versus significant contrast opacification of the partially visualized coronary arteries. Liver: Very subtle hypodense mass in the right lobe of liver measuring approximately 3.0 x 2.3 cm (series 2, image 45). Gallbladder and bile ducts: Unremarkable. Pancreas: Unremarkable. Spleen: Unremarkable. Adrenal glands: Unremarkable. Kidneys: Kidneys enhance symmetrically, without hydronephrosis. Retroperitoneum: No lymphadenopathy. Bowel and mesentery: Bowel is not obstructed. No significant ascites, no pneumoperitoneum. Normal appendix. Mild colitis involving the ascending and transverse colon. Bladder: Circumferential bladder wall thickening. Reproductive organs: Unremarkable. Trace pelvic free fluid, likely physiologic. Pelvic lymph nodes: No lymphadenopathy. Vessels: Unremarkable. Abdominal wall: No acute abdominal wall abnormality. Bones: No suspicious/aggressive focal osseous lesion. Procedure Note Srinivas Johnson MD - 04/28/2025 For Patients: As a result of the Cures Act, medical imagingexams and procedure reports are released immediately into your electronicmedical record. You may view this report before your referring provider.If you have questions, please contact your health care provider. INDICATION: Right lower quadrant abdominal pain. TECHNIQUE: CT abdomen and pelvis acquired with 100 mL Omnipaque 350 IV contrast. COMPARISON: None. FINDINGS: Lower chest: No focal consolidation. Coronary artery calcifications versussignificant contrast opacification of the partially visualized coronaryarteries. Liver: Very subtle hypodense mass in the right lobe of liver measuringapproximately 3.0 x 2.3 cm (series 2, image 45). Gallbladder and bile ducts: Unremarkable. Pancreas: Unremarkable. Spleen: Unremarkable. Adrenal glands: Unremarkable. Kidneys: Kidneys enhance symmetrically, without hydronephrosis. Retroperitoneum: No lymphadenopathy. Bowel and mesentery: Bowel is not obstructed. No significant ascites, nopneumoperitoneum. Normal appendix. Mild colitis involving the ascendingand transverse colon. Bladder: Circumferential bladder wall thickening. Reproductive organs: Unremarkable. Trace pelvic free fluid, likelyphysiologic. Pelvic lymph nodes: No lymphadenopathy. Vessels: Unremarkable. Abdominal wall: No acute abdominal wall abnormality. Bones: No suspicious/aggressive focal osseous lesion. IMPRESSION: 1. Mild colitis involving the ascending and transverse colon. No evidenceof acute appendicitis. 2. Circumferential urinary bladder wall thickening, concerning forcystitis. Recommend correlation with urinalysis. 3. Very subtle hypodense mass in the right lobe of the liver measuring upto 3.0 cm. Recommend further evaluation with liver MRI. 4. Partially visualized significantly contrast opacified coronary arteriesversus coronary artery calcifications in the lower chest, difficult todifferentiate due to motion artifact. Coronary artery calcifications wouldbe atypical given patient`s age, recommended correlation with cardiachistory. Please note that all CT scans at this facility use dose modulation,iterative reconstruction, and/or weight-based dosing when appropriate toreduce radiation dose to as low as reasonably achievable. Dictated by Srinivas Johnson MD @ 04/28/2025 4:52:03 PM (Electronically Signed) us Jero JAMES CT Final R esult * WELT POCKET MACHINE OPERATOR THIN PREP PAP SCREEN IMAGED (07/23/2023 1:52 PM PIN MACHINE OPERATOR) Case Report Gynecologic Cytology Report Case: [id number] Authorizing Provider: Jero Rojas PA Collected: 07/23/2023 1352 Ordering Location: [facility] Received: 07/23/2023 1431 Clinic First Screen: Sabrina Pickering Pathologist: Son Barrera Jr., MD Specimen: WELT POCKET MACHINE OPERATOR ThinPrep Vial Screening, Cervical 08/06/2023 3:12 PM PIN MACHINE OPERATOR [facility] INTERPRETATION/ RESULT NEGATIVE FOR INTRAEPITHELIAL LESION OR MALIGNANCY (NIL) (none) 08/06/2023 3:12 PM PIN MACHINE OPERATOR [facility] at 1512 PIN MACHINE OPERATOR OTHER NON-NEOPLASTIC FINDING(S) Reactive cellular changes associated with inflammation/repa ir 08/06/2023 3:12 PM PIN MACHINE OPERATOR [facility] SPECIMEN ADEQUACY Satisfactory for evaluation Endocervical component present 08/06/2023 3:12 PM PIN MACHINE OPERATOR [facility] Date of LMP 06-27-23 08/06/2023 3:12 PM PIN MACHINE OPERATOR [facility] Last Pap Date none 08/06/2023 3:12 PM PIN MACHINE OPERATOR [facility] Last Pap Result First Pap/Unknown 3:12 PM PIN MACHINE OPERATOR [facility] Abnormal Pap or [place] Bx in last 5 years No 08/06/2023 3:12 PM PIN MACHINE OPERATOR [facility] Menstrual Status Regular Periods 08/06/2023 3:12 PM PIN MACHINE OPERATOR [facility] [place] Bx Done Today No 08/06/2023 3:12 PM PIN MACHINE OPERATOR [facility] Additional Information None given 08/06/2023 3:12 PM PIN MACHINE OPERATOR [facility] Comment: Cytology is screened at [facility] - [address], [place] [address] and [facility] - [address], [place] [address] and [facility] - [address] [place] [address] Interpreted at [facility] - [address], [place] [address] Automated Review Successful 08/06/2023 3:12 PM PIN MACHINE OPERATOR [facility] Comment:Specimen processed s uccessfully by automated laboratory clerk device, ThinPrep Imaging System, [employer] Note The pap test is a screening technique, not a diagnostic procedure. It is used primarily to screen for squamous cancers and precursor lesions. Published studies have shown that it is subject to both false negative and false positive results. The pap test should not be used as the sole means to diagnose or exclude pre-malignant and malignant lesions. 08/06/2023 3:12 PM PIN MACHINE OPERATOR [facility] Other (Cervical) Non-Blood / Unknown 07/23/2023 1:52 PM PIN MACHINE OPERATOR 07/23/2023 2:31 PM PIN MACHINE OPERATOR Jero JAMES PATHOLOGY/CYTOLOGY Maggie l Result Performing Organization Address [facility] Co de Phone Number [facility] [address] [address], [place] * ANTI HCV (06/20/2023 10:05 AM CDT) Pathologist [facility] HEPATITIS C ANTIBODY Non-Reacti ve Non-React lupe 06/20/2023 4:50 PM CDT [facility] Comment:Please note, per www .CDC.gov: [...] 10:05 AM CDT 06/20/2023 10:06 AM CDT Jero JAMES SEND OUTS Final R esult Performing Organization Address City/[facility]/ZIP Co de Phone Number [facility] [address] [place] [address], [place] * ANTI HIV 1/2 (06/20/2023 10:05 AM CDT) Pathologist [facility] HIV-1/HIV-2 SCREEN Non-Reacti ve Non-Reacti ve 06/20/2023 4:42 PM CDT [facility] Comment:HIV-1 p24 and HIV-1/ HIV-2 Ab Not Detected. Blood BLOOD SPECIMEN / Unknown Venipuncture / Unknown 06/20/2023 10:05 AM CDT 06/20/2023 10:06 AM CDT us Jero JAMES SEND OUTS Final R esult [facility] [address] [place] [address], from Last 3 Months or Most Recently Relevant to Health Maintenance Insurance MEDICAID MEDICAID Care Teams Energy Director Relationship Specialty Start Date End Date Jero Rojas [place] [address] PCP - General Physician Vegetable Harvest Worker 05/19/20
[2025-07-03 09:42] VITALS: BP 115/65; PULSE 84; RESP 18; TEMP 37.1; O2SAT 96; BMI 26.0
--- NOTE | 2025-07-03 10:05 | CRLHL7_ITS ---
For Patients: As a result of the Century Cures Act, medical imaging exams and procedure reports are released immediately into your electronic medical record. You may view this report before your referring provider. If you have questions, please contact your health care provider. Indication: Trauma. Right mandibular injury Technique: CT examination of the mandible was performed. Imaging was acquired from the mid frontal sinuses through below the hyoid bone. Contrast was administered. Sagittal and coronal reformatted imaging was performed. Comparison: None Findings: Soft tissues: Prominent lymph nodes identified bilaterally and symmetrically. This is probably reactive though follow-up evaluation is recommended. Osseous structures: No fracture or destructive process identified involving the mandible or the facial bones as visualized. The temporomandibular joints appear normal and are intact. Minor paranasal sinus mucosal inflammatory disease. No abnormal periapical lucencies associated with the dental structures. Impression: No evidence of mandibular fracture. Prominent lymph nodes in the upper jugular region bilaterally probably reactive. Please note that all CT scans at this facility use dose modulation, iterative reconstruction, and/or weight-based dosing when appropriate to reduce radiation dose to as low as reasonably achievable. Dictated by Subhash Duncan MD @ 07/03/2025 10:40:20 AM (Electronically Signed)
--- NOTE | 2025-07-03 10:05 | ED.GENADULT ---
HPI - General Adult General Chief complaint: Jaw Injury/Pain Stated complaint: Jaw pain Time Seen by Provider: 07/03/25 09:52 History of Present Illness HPI narrative: Patient is a 25-year-old woman who was unloading boxes yesterday when a box slid down and struck her in the right side of her jaw. She did not have any other head injuries. She has no loose teeth but feels like her jaws injured near the TMJ. She is able to open and close her mouth with only moderate pain. She has no signs of dislocation as she can move her jaw left and right. She does have exquisite pain with palpation of the location. She has had no skin breakdown no redness no fever but she does have mild swelling over the right superior mandible near the TMJ. Related Data Home Medications ?Medication ?Instructions ?Recorded ?Confirmed albuterol sulfate 90 mcg/actuation 2 puff inhalation PRN 10/26/24 07/01/25 aerosol inhaler Previous Rx's ?Medication ?Instructions ?Recorded fluconazole 150 mg tablet 150 mg PO Q3D 2 doses #2 tabs 07/01/25 metronidazole 500 mg tablet 500 mg PO BID #14 tabs 07/01/25 Allergies Allergy/AdvReac Type Severity Reaction Status Date / Time No Known Allergies Allergy Verified 07/03/25 09:47 Review of Systems Status of ROS: Reports: 10 or more systems reviewed and unremarkable except as noted in History and below [facility] Medical History Depression ?F32.A - Depression, unspecified (ICD-10) Chlamydia ?A74.9 - Chlamydial infection, unspecified (ICD-10) Asthma ?J45.909 - Unspecified asthma, uncomplicated (ICD-10) Moderate episode of recurrent major depressive disorder (05/30/16) ?F33.1 - Major depressive disorder, recurrent, moderate (ICD-10) Surgical History History of placement of ear tubes ?Z96.22 - Myringotomy tube(s) status (ICD-10) Family History Paternal Grandmother Breast cancer Mother Depression Brother Paraplegia Other Bone cancer Social History Narrative: 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 She has a high school graduate. She does not exercise regularly. She vapes daily. She doesn't use tobacco. She does not drink alcohol or use recreational drugs. Smoking Status: Never smoker Do you use any of these nicotine containing products: None Second hand tobacco smoke exposure: No How often do you have a drink containing alcohol: never How often do you have six or more drinks on one occasion: Never AUDIT-C Alcohol total score: 0 Non-prescribed substance use: denies use service: No Exam Narrative: Exam Narrative: EXAM GENERAL: Patient appears comfortable and well. EYES: No scleral icterus. ENT: Tympanic membranes and oropharynx normal. Facial exam shows mild swelling of the TMJ with tenderness to palpation no erythema or skin breakdown. No bruising. LYMPH: No supraclavicular or cervical lymphadenopathy. SKIN: Visible skin seen during exam normal or with benign process only. EXT: No dependent lower extremity pedal edema. HEART: Regular rate and rhythm with no murmurs, rubs, or gallops. LUNGS: Clear to auscultation bilaterally with no crackles or wheezes. ABD: Soft, non tender, non distended. PSYCH: Good eye contact, speech is not pressured. Const: Vital Signs, click to edit/add: Vital Signs - 24 hr 07/03/25 09:42 Temperature 98.7 F Pulse Rate [Right Pulse Oximeter] 84 Respiratory Rate 18 Blood Pressure [Ri ght Upper Arm] 115/65 Pulse Oximetry 96 Oxygen Delivery Me thod Room Air Course Course ED Course: Patient presents with right jaw injury. CT of the face pending. Vital Signs Vital signs: Initial Vital Signs Temperature 98.7 F 07/03/25 09:42 Temperature Source Temporal Artery Scan 07/03/25 09:42 Pulse Rate 84 07/03/25 09:42 Pulse Rhythm Regular 07/03/25 09:42 Pulse Strength 3+ Normal 07/03/25 09:42 Respiratory Rate 18 07/03/25 09:42 Blood Pressure 115/65 07/03/25 09:42 Blood Pressure Mean 81 07/03/25 09:42 Blood Pressure Position Sitting 07/03/25 09:42 Pulse Oximetry 96 07/03/25 09:42 Oxygen Delivery Method Room Air 07/03/25 09:42 Vital Signs Temperature 98.7 F 07/03/25 09:42 Pulse Rate 84 07/03/25 09:42 Respiratory Rate 18 07/03/25 09:42 Blood Pressure 115/65 07/03/25 09:42 Pulse Oximetry 96 07/03/25 09:42 Oxygen Delivery Method Room Air 07/03/25 09:42 Temperature 98.7 F 07/03/25 09:42 Pulse Rate 84 07/03/25 09:42 Respiratory Rate 18 07/03/25 09:42 Blood Pressure 115/65 07/03/25 09:42 Pulse Oximetry 96 07/03/25 09:42 Oxygen Delivery Method Room Air 07/03/25 09:42 Medical Decision Making MDM Narrative Medical decision making narrative: Patient presents with a injury to the right side of her jaw. CT scan shows no acute abnormalities no dislocation. She does have some mild swelling and lymphadenopathy I suspect she either has a viral syndrome creating the painful lymphadenopathy or contusion which may be involving the TMJ. This time I did recommend ice anti-inflammatories and rest as well as primary care follow-up. Discharge Plan Discharge Clinical Impression: Injury of jaw Patient Disposition: Home, Self-Care Condition: Stable Additional Instructions: Ice Tylenol Motrin Rest Follow-up with primary care Activity Level: No Restrictions Discharge Diet: Regular Prescriptions: No Action albuterol sulfate 90 mcg/actuation HFA aerosol inhaler 2 puff inhalation PRN fluconazole 150 mg tablet 150 mg PO Q3D Qty: 2 0RF metronidazole 500 mg tablet 500 mg PO BID Qty: 14 0RF Follow Up/Referrals: Amna Rojas PA-C [Primary Care Provider, Family Practice] Stand Alone Forms: MyHealth Info Instructions
== END 2025-07-03 10:55 | disposition home or self-care (01) ==
PROVIDERS: Emergency Provider Internal Medicine; PCP Physician Assistant Medical
DX: S09.93XA Unspecified injury of face, initial encounter (principal); W22.8XXA Striking against or struck by other objects, initial encounter
CPT/HCPCS: 70486; 99283; 99284